=== PATIENT | male | born 1950 | race Caucasian/White ===

== ENCOUNTER 2018-06-11 10:14 | Emergency (ER) | payer MEDICARE, BC, SELFPAY ==
[2018-06-11 10:18] VITALS: BP 182/74; PULSE 55; RESP 18; TEMP 36.1; O2SAT 95; BMI 31.3
[2018-06-11 10:52] LABS: Bacteria Urine None Seen
--- NOTE | 2018-06-11 10:57 | DI.CT.S_ITS ---
PROCEDURE: CT KIDNEY URETER BLADDER (KUB) INDICATIONS: right flank pain TECHNIQUE: Noncontrast 5 mm thick sections acquired from the diaphragms to the symphysis. 5 mm thick coronal and sagittal reformats were then performed. For radiation dose reduction, the following was used: automated exposure control, adjustment of mA and/or kV according to patient size. COMPARISON: None. FINDINGS: Image quality: Excellent. Lung bases: Lung bases are clear. Heart size is normal. Urinary system: Both kidneys are atrophic bilaterally. Minimal hepatic calcifications are present. Superior left renal pole low attenuation focus is measured at 42 mm. There are 2 punctate calcifications within the superior left renal pole. There is a left inferior pole renal calcification measuring 4 mm, Hounsfield units for 47. There is a punctate inferior right renal pole calcification. There is a 3 mm calcification within the proximal right ureter with mild surrounding periureteral fluid. In addition, a 2 mm distal right ureteral calculus is present approximately 1.5 cm from the ureterovesicular junction. There is mild right hydronephrosis and hydroureter. Bladder wall thickness is normal; no calcified bladder stones. Prostate gland is enlarged with calcification. Other solid organs: Liver is normal in size. Gallbladder is unremarkable. Pancreas is normal in contours. Spleen is normal in size. There is a 27 mm focus of medial splenic low attenuation Hounsfield units 13. Left adrenal nodule is present measuring 20 mm, Hounsfield units measuring 9. Peritoneum and bowel: Unenhanced bowel loops demonstrate normal wall thickness and caliber. No free fluid or air. There is mild thickening of the distal esophagus with small hiatal hernia. Nodes and vessels: No retroperitoneal or mesenteric adenopathy by size criteria. Aorta and inferior vena cava are normal in caliber. Abdominal wall: No ventral hernias. Pelvis: No free pelvic fluid. Bilateral fat containing inguinal hernias are present. Bones: No suspicious bony lesions. No vertebral body compression fractures. IMPRESSION: 1. Mild right hydronephrosis and hydroureter with a proximal and distal ureteral calculi as above. Periureteral stranding is noted proximally likely secondary to a small degree of urinary extravasation. 2. Nonobstructing left renal calculi as well as renal cyst. 3. Benign-appearing left adrenal nodule as well as splenic cyst. Dictated by: Alessandra Hummel M.D. on 06/11/2018 at 11:30 Approved by: Alessandra Hummel M.D. on 06/11/2018 at 11:36
[2018-06-11 11:03] LABS: Mucus Urine 1+ (Negative); Renal Epithelial Cells Urine 0-1/HPF; Squamous Epithelial Cell Urine 0-1 /HPF; Transitional Epi Cells Urine 0-1/HPF (0-5/HPF); WBC Urine 0-1/HPF (0-5/HPF)
[2018-06-11 11:04] LABS: Culture Indicated Urine Cult Not Indicated; RBC Urine 30-100/HPF (0-5/HPF)
[2018-06-11 11:18] LABS: Add Manual Diff / Slide Review NO; Basophils Absolute Auto 100 /uL (0-100); Basophils Percent Auto 0.8 % (0-2); Eosinophils Absolute Auto 100 /uL (0-450); Eosinophils Percent Auto 0.6 % (2-4); Hemoglobin 16.5 g/dL (13.5-17.5); Lymphocytes Absolute Auto 1300 /uL (1100-4500); Lymphocytes Percent Auto 14.7 % (25-40); Mean Corpuscular HGB Conc 34.4 % (30-36); Mean Corpuscular Hemoglobin 29.7 PG (26-34); Mean Corpuscular Volume 86.2 fL (80-100); Monocytes Absolute Auto 700 /uL (0-900); Monocytes Percent Auto 8.3 % (3-14); Neutrophils Absolute Auto 6800 /uL (1500-7000); Neutrophils Percent Auto 75.6 % (50-75); Platelet Count 141 X10^3/uL (150-400); Red Blood Cell Count 5.56 X10^6/uL (4.5-5.9); Red Cell Distribution Width 14.2 % (11.6-14.8); White Blood Cell Count 8.9 X10^3/uL (4.5-11.0)
[2018-06-11] MEDS: SODIUM CHLORIDE 0.9% 1,000 ML 1000 ML IV (11:21)
[2018-06-11 11:29] LABS: Alanine Aminotransferase 41 IU/L (21-72); Albumin 4.3 g/dL (3.5-5.0); Albumin Globulin Ratio 1.5 (1.0-2.8); Alkaline Phosphatase 62 U/L (38-126); Aspartate Aminotransferase 28 IU/L (17-59); BUN Creatinine Ratio 21.1 (6-22); Bilirubin Total 1.4 mg/dL (0.2-1.3); Blood Urea Nitrogen 19 mg/dL (9-20); Calcium 9.3 mg/dL (8.4-10.2); Carbon Dioxide 21 mmol/L (22-32); Chloride 108 mmol/L (98-107); Estimated Glomerular Filt Rate > 60.0 mL/min (>60); Globulin 2.8 g/dL (1.7-4.1); Glucose 187 mg/dL (80-110); HEMOLYSIS < 15 (0-50); Lipase 217 U/L (23-300); Potassium 4.1 mmol/L (3.4-5.1); Sodium 141 mmol/L (137-145); Total Protein 7.1 g/dL (6.3-8.2)
--- NOTE | 2018-06-11 11:29 | ED_ITS ---
HPI - Abdominal Pain General Chief Complaint: Abdominal Pain Stated Complaint: Kidney Pain Time Seen by Provider: 06/11/18 10:38 Source: patient Mode of arrival: ambulatory Limitations: no limitations History of Present Illness HPI narrative: patient is 67-year-old male who presents with right-sided flank pain. He said it started while use eating breakfast and then we got up he felt a twinge. He now is occasionally having radiation around to his abdomen. No prior history of kidney stones no blood in his urine. He has thrown up 4 times due to severe pain. No fever or chills. MD complaint: flank pain Onset (ago): hour(s) Pain Consistency: intermittent Severity: moderate Quality: sharp Radiation: suprapubic Related Data Home Medications Medication Instructions Recorded Confirmed ATENOLOL (Tenormin) 25 mg PO EVERY DAY #0 03/03/08 Tamsulosin Hydrochloride (Flomax) 0.4 mg PO #0 03/03/08 Previous Rx's Medication Instructions Recorded hydrocodone-acetaminophen [[place]] 1 tab PO Q4-6H PRN #10 tab 06/11/18 ondansetron 4 mg PO Q6-8H PRN 4 Days #10 tab 06/11/18 tamsulosin [Flomax] 0.4 mg PO DAILY #7 cap 06/11/18 Allergies Allergy/AdvReac Type Severity Reaction Status Date / Time Penicillins Allergy Verified 06/11/18 11:20 Review of Systems Review of Systems ROS Unobtainable: All systems reviewed & are unremarkable except as noted in HPI and below Constitutional Denies chills, Denies fever(s), Denies lethargy and Denies weakness Cardiovascular Denies chest pain, Denies irregular heart rhythm, Denies lightheadedness, Denies palpitations, Denies dyspnea, Denies dyspnea on exertion and Denies orthopnea Respiratory Denies cough, Denies dyspnea, Denies dyspnea on exertion and Denies wheezing Gastrointestinal Gastrointestinal: Reports nausea and Reports vomiting Genitourinary Denies hematuria, Denies flank pain, Denies urinary incontinence and Denies urinary urgency Musculoskeletal Denies back pain, Denies muscle weakness, Denies numbness and Denies tingling Neurologic Denies numbness, Denies tingling and Denies weakness Endocrine Denies palpitations Allergic/Immunologic Denies wheezing [facility] Social History Smoking Status: Never smoker Social History Smoking Status: Never smoker Exam Initial Vital Signs Initial Vital Signs: Vital Signs Temperature 97.0 F L 06/11/18 10:18 Pulse Rate 55 L 06/11/18 10:18 Respiratory Rate 18 06/11/18 10:18 Blood Pressure 182/74 H 06/11/18 10:18 Pulse Oximetry 95 06/11/18 10:18 GENERAL: alert well-appearing male no acute distress HEENT: Head atraumatic,EOMI, pupils reactive, CARDIOVASCULAR: Regular rate and rhythm without murmurs, rubs or gallops. RESPIRATORY: Breath sounds equal bilaterally, no wheezes rales or rhonchi. ABDOMEN: Soft, nontender. Normoactive bowel sounds all 4 quadrants. No guarding or rebound. : Right CVA tenderness EXTREMITIES: Normal range of motion, no clubbing or edema. Neurovascularly intact NEUROLOGICAL: Alert and oriented x4.Normal gait and speech. SKIN: Warm, dry, no laceration, no petechiae, no rashes or lesions. Course Orders Ordered: ED Orders 06/11/18 10:41 Urine Microscopic Stat 06/11/18 10:57 CT kidney ureter bladder (KUB) Stat 06/11/18 11:10 Complete Blood Count AUTO DIFF Stat Comprehensive Metabolic Panel Stat Lipase Stat Discontinued Medications Sodium Chloride (Normal Saline 0.9%) 1,000 mls @ 1,000 mls/hr IV CONT GLENYS Last Infusion: 06/11/18 12:28 Dose: 0 mls/hr Admin: 06/11/18 11:21 Dose: 1,000 mls/hr Vital Signs - 8 hr 06/11/18 10:18 06/11/18 12:32 Temperature 97.0 F L Pulse Rate 55 L 45 L Respiratory Rate 18 15 Blood Pressure 182/74 H 149/59 H Pulse Oximetry 95 98 MDM - Abdominal Pain Lab Data Attestation: I reviewed the patient's lab results. Result diagrams: 06/11/18 11:10 06/11/18 11:10 Lab Results 06/11/18 06/11/18 06/11/18 Range/Units 10:41 11:10 11:10 WBC 8.9 (4.5-11.0) X10^3/uL RBC 5.56 (4.5-5.9) X10^6/uL Hgb 16.5 (13.5-17.5) g/dL Hct 48.0 (41-53) % MCV 86.2 (80-100) fL MCH 29.7 (26-34) PG MCHC 34.4 (30-36) % RDW 14.2 (11.6-14.8) % Plt Count 141 L (150-400) X10^3/uL Neut % (Auto) 75.6 H (50-75) % Lymph % (Auto) 14.7 L (25-40) % Gregory % (Auto) 8.3 (3-14) % Eos % (Auto) 0.6 L (2-4) % Baso % (Auto) 0.8 (0-2) % Neut # (Auto) 6800 (6005-0758) /uL Lymph # (Auto) 1300 (6225-9505) /uL Gregory # (Auto) 700 (0-900) /uL Eos # (Auto) 100 (0-450) /uL Baso # (Auto) 100 (0-100) /uL Sodium 141 (137-145) mmol/L Potassium 4.1 (3.4-5.1) mmol/L Chloride 108 H (98-107) mmol/L Carbon Dioxide 21 L (22-32) mmol/L BUN 19 (9-20) mg/dL Creatinine 0.90 (0.66-1.25) mg/dL Estimated GFR > 60.0 (>60) mL/min BUN/Creatinine Ratio 21.1 (6-22) Glucose 187 H (80-110) mg/dL Calcium 9.3 (8.4-10.2) mg/dL Total Bilirubin 1.4 H (0.2-1.3) mg/dL AST 28 (17-59) IU/L ALT 41 (21-72) IU/L Alkaline Phosphatase 62 (38-126) U/L Total Protein 7.1 (6.3-8.2) g/dL Albumin 4.3 (3.5-5.0) g/dL Globulin 2.8 (1.7-4.1) g/dL Albumin/Globulin Ratio 1.5 (1.0-2.8) Lipase 217 (23-300) U/L Urine RBC 30-100/hpf H (0-5/HPF) Urine WBC 0-1/hpf (0-5/HPF) Ur Squamous Epith Cells 0-1 /hpf Ur Transition Epith Cell 0-1/hpf (0-5/HPF) Ur Renal Epithelial Cell 0-1/hpf Urine Bacteria None seen (None) Urine Mucus 1+ H (Negative) Ur Culture Indicated? Cult not indicated Point of care testing: Urine Dip Bedside Urine Glucose Negative Bedside Urine Bilirubin - Negative Bedside Urine Ketone - Negative Urine Specific [place] 1.025 Bedside Urine Occult Blood +++ Bedside Urine pH 5.5 Bedside Urine Protein +/- 15 Bedside Urine Urobilinogen - Negative Bedside Urine Nitrite - Negative Bedside Urine Leukocytes - Negative Esterase Imaging Data CT scan - abdomen: Radiologist's impression: PROCEDURE: CT KIDNEY URETER BLADDER (KUB) INDICATIONS: right flank pain TECHNIQUE: Noncontrast 5 mm thick sections acquired from the diaphragms to the symphysis. 5 mm thick coronal and sagittal reformats were then performed. For radiation dose reduction, the following was used: automated exposure control, adjustment of mA and/or kV according to patient size. COMPARISON: None. FINDINGS: Image quality: Excellent. Lung bases: Lung bases are clear. Heart size is normal. Urinary system: Both kidneys are atrophic bilaterally. Minimal hepatic calcifications are present. Superior left renal pole low attenuation focus is measured at 42 mm. There are 2 punctate calcifications within the superior left renal pole. There is a l eft inferior pole renal calcification measuring 4 mm, Hounsfield units for 47. There is a punctate inferior right renal pole calcification. There is a 3 mm calcification within the proximal right ureter with mild surrounding periureteral fluid. In addition, a 2 mm distal right ureteral calculus is present approximately 1.5 cm from the ureterovesicular junction. There is mild right hydronephrosis and hydroureter. Bladder wall thickness is normal; no calcified bladder stones. Prostate gland is enlarged with calcification. Other solid organs: Liver is normal in size. Gallbladder is unremarkable. Pancreas is normal in contours. Spleen is normal in size. There is a 27 mm focus of medial splenic low attenuation Hounsfield units 13. Left adrenal nodule is present measuring 20 mm, Hounsfield units measuring 9. Peritoneum and bowel: Unenhanced bowel loops demonstrate normal wall thickness and caliber. No free fluid or air. There is mild thickening of the distal esophagus with small hiatal hernia. Nodes and vessels: No retroperitoneal or mesenteric adenopathy by size criteria. Aorta and inferior vena cava are normal in caliber. Abdominal wall: No ventral hernias. Pelvis: No free pelvic fluid. Bilateral fat containing inguinal hernias are present. Bones: No suspicious bony lesions. No vertebral body compression fractures. IMPRESSION: 1. Mild right hydronephrosis and hydroureter with a proximal and distal ureteral calculi as above. Periureteral stranding is noted proximally likely secondary to a small degree of urinary extravasation. 2. Nonobstructing left renal calculi as well as renal cyst. 3. Benign-appearing left adrenal nodule as well as splenic cyst. Dictated by: Alessandra Hummel M.D. on 06/11/2018 at 11:30 MDM Narrative Medical decision making narrative: the patient's pain is controlled while in the ED. Discussed with him he should see Urology in regards to his multitude of kidney stones. He has a PCP in in a different town. Discharge Plan Departure Patient Disposition: Home Clinical Impression: Calculus of kidney Discharge Date/Time: 06/11/18 12:34 Interventions: ED Discharge Assessment Last Done: 06/11/18 12:32 Instructions: Kidney Stones -- Adult Activity Restrictions/Additional Instructions: *Increase fluid intake *Call urology office tomorrow, to schedule follow-up appointment. Strain urine, try to catch stone -If you should have fever, or pain is uncontrolled with medication at home or any other concerning symptoms return to ER for further evaluation MEDICATIONS Take Motrin 600 mg every 6-8 hours as needed for pain Take [place] every 6 hours if needed for severe pain Take Zofran every 4-6 hours if needed for nausea take Flomax 0.4 mg once daily to help with passage of kidney stone CONTROLLED SUBSTANCE DISCHARGE (Narcotoic/benzodiazepine) 1. You have been prescribed narcotic medications, it does have acetaminophen/Tylenol/paracetamol in it so do not take extra Tylenol or Tylenol containing products 2. Please understand that we cannot provide further refills of narcotics, benzodiazepines or controlled substances through the ED and her pain management will need to be through your provider. 3. While on these medications you cannot drive or operate heavy machinery. 4. You cannot sign legal documents or perform any duties such as this. 5. As long as you're taking opiate pain medications he should also be taking a stool softener such as Colace, Dulcolax, MiraLAX or prune juice, to help avoid constipation. Prescriptions: New hydrocodone-acetaminophen [[place]] 5-325 mg tablet 1 tab PO Q4-6H PRN (Reason: pain) Qty: 10 RF: 0 tamsulosin [Flomax] 0.4 mg capsule 0.4 mg PO DAILY Qty: 7 RF: 0 ondansetron 4 mg tablet,disintegrating 4 mg PO Q6-8H PRN (Reason: nausea and vomiting) 4 Days Qty: 10 RF: 0 No Action ATENOLOL (Tenormin) 25 mg PO EVERY DAY Qty: 0 RF: 0 Tamsulosin Hydrochloride (Flomax) 0.4 mg PO Qty: 0 RF: 0 Referrals: Naty Kinney MD [Primary Care Provider] -
[2018-06-11 12:32] VITALS: BP 149/59; PULSE 45; RESP 15; O2SAT 98
== END 2018-06-11 12:34 | disposition home or self-care (01) ==
PROVIDERS: Emergency Provider Emergency Medicine; PCP Family Medicine
DX: N20.0 Calculus of kidney (principal)
CPT/HCPCS: 36591; 74176; 80053; 81003; 81015; 83690; 85025; 96360; 99283; 99284

== ENCOUNTER 2023-01-26 22:22 | Inpatient (IN) | payer MEDICARE, OTHER, SELFPAY ==
[2023-01-26] VITALS (7 sets, daily range): BP systolic 92–112; BP diastolic 54–65; PULSE 56–60; RESP 18–21; TEMP 36.5; O2SAT 91–95; BMI 29.7
[2023-01-26 22:56] LABS: Alanine Aminotransferase 18 IU/L (<50); Albumin 3.9 g/dL (3.5-5.0); Albumin Globulin Ratio 1.1 (1.0-2.8); Alkaline Phosphatase 65 U/L (38-126); Aspartate Aminotransferase 20 IU/L (17-59); BUN Creatinine Ratio 21.5 (6-22); Bilirubin Total 1.8 mg/dL (0.2-1.3); Blood Urea Nitrogen 67 mg/dL (9-20); Calcium 9.4 mg/dL (8.4-10.2); Carbon Dioxide 17 mmol/L (22-32); Chloride 99 mmol/L (98-107); Estimated Glomerular Filt Rate 20 mL/min (>60); Globulin 3.4 g/dL (1.7-4.1); Glucose 184 mg/dL (80-110); HEMOLYSIS 16 (0-50); Lipase 1045 U/L (23-300); Potassium 3.8 mmol/L (3.4-5.1); Sodium 132 mmol/L (137-145); Total Protein 7.3 g/dL (6.3-8.2)
[2023-01-26 22:58] LABS: Add Manual Diff / Slide Review NO; Basophils Absolute Auto 100 /uL (0-100); Basophils Percent Auto 0.6 % (0-2); Eosinophils Absolute Auto 100 /uL (0-450); Eosinophils Percent Auto 0.3 % (2-4); Hematocrit 41.7 % (41-53); Hemoglobin 14.3 g/dL (13.5-17.5); Lymphocytes Absolute Auto 2300 /uL (1100-4500); Lymphocytes Percent Auto 13.2 % (25-40); Mean Corpuscular HGB Conc 34.3 % (30-36); Mean Corpuscular Hemoglobin 29.4 PG (26-34); Mean Corpuscular Volume 85.6 fL (80-100); Monocytes Absolute Auto 2100 /uL (0-900); Monocytes Percent Auto 12.2 % (3-14); Neutrophils Absolute Auto 12800 /uL (1500-7000); Neutrophils Percent Auto 73.7 % (50-75); Platelet Count 201 X10^3/uL (150-400); Red Blood Cell Count 4.88 X10^6/uL (4.5-5.9); Red Cell Distribution Width 14.7 % (11.6-14.8); White Blood Cell Count 17.3 X10^3/uL (4.5-11.0)
[2023-01-26 23:14] LABS: Lactate (Lactic Acid) 1.9 mmol/L (0.7-2.1)
[2023-01-26 23:15] LABS: Creatine Kinase 62 U/L (55-170); Magnesium 2.1 mg/dL (1.6-2.3)
[2023-01-26 23:27] LABS: Troponin I 0.031 ng/mL (0.01-0.034)
--- NOTE | 2023-01-26 23:27 | DI.CT.S_ITS ---
PROCEDURE: CT KIDNEY URETER BLADDER (KUB) INDICATIONS: elevated creatnine, hypotension, left kidney stone, low o2 TECHNIQUE: Axial sections were acquired from the lung bases to the pubic symphysis. Coronal and sagittal reformats were performed. For radiation dose reduction, the following was used: automated exposure control, adjustment of mA and/or kV according to patient size. COMPARISON: [facility], CT, CT KIDNEY URETER BLADDER (KUB), 06/11/2018, 11:07. FINDINGS: Image quality: Excellent. Lung bases: Unremarkable. Heart: Heart size is enlarged, no pericardial effusion. URINARY: Right Kidney: Right kidney is slightly atrophic. No nephrolithiasis or hydronephrosis. Right Ureter: No hydroureter. Left Kidney: Left Kidney is enlarged. Moderate left-sided hydronephrosis and left perinephric fat stranding is seen. Nonobstructing punctate 1-2 mm left renal calculi are also seen. There is suggestion of a simple appearing left renal cyst measures 5 x 5 cm in size. Left Ureter: Left proximal hydroureter and periureteral fat stranding is seen. 2 stones are noted within proximal left ureter measures up to 6 mm in size and 110 Hounsfield unit in density series 2, image 52. More distal portion of left ureter is normal in size. No additional ureteral stones. Bladder: enlarged prostate gland with mass effect on floor of urinary bladder is seen. Mild diffuse bladder wall thickening, no discrete bladder wall mass. No calcified bladder stones. ABDOMEN: Liver: Unremarkable. Gallbladder: gallbladder is within normal limits. Biliary ducts: Unremarkable. Pancreas: Unremarkable. Spleen: Unremarkable. Adrenal Glands: 2.4 x 2.7 cm hypodense nodule in left adrenal gland is seen measures 11.5 Hounsfield unit in density likely represent benign adrenal adenoma.. Stomach and Bowel: Stomach, small bowel loops, and colon are unremarkable. Peritoneum: No abnormal intraperitoneal fluid. No free air. Ventral Wall: No hernia. Abdominal Nodes: No enlarged retroperitoneal or mesenteric lymph nodes. Vessels: Aorta and inferior vena cava are normal in size. PELVIS: Pelvic Organs: Unremarkable. Pelvic Nodes: Unremarkable. Miscellaneous: No inguinal hernias are seen. Bones: No suspicious bony lesions. No acute vertebral body compression fracture. IMPRESSION: 1. Up to 6 mm left proximal ureteral stones with moderate left-sided hydronephrosis and left perinephric fat stranding. 2. Nonobstructing left renal calculi. Left renal cysts as above. No right-sided hydronephrosis or hydroureter. 3. No bladder stones. Enlarged prostate gland with mass effect on floor of urinary bladder. Mild diffuse bladder wall thickening. No gross bladder wall mass. 4. Stable left adrenal adenoma. 5. No bowel obstruction. No abscess collection. No free fluid or free air. Dictated by: Alfonso Tom M.D. on 01/26/2023 at 23:53 Approved by: Alfonso Tom M.D. on 01/27/2023 at 0:00
--- NOTE | 2023-01-26 23:27 | DI.RAD.S_ITS ---
PROCEDURE: XR CHEST 1V INDICATIONS: elevated creatnine, hypotension, left kidney stone, low o2 TECHNIQUE: One view of the chest was acquired. COMPARISON: None. FINDINGS: Surgical changes and devices: None. Lungs and pleura: Lungs are clear. No pleural effusions or pneumothorax. Mediastinum: Mediastinal contours appear normal. Heart size is normal. Bones and chest wall: No suspicious bony lesions. Overlying soft tissues appear unremarkable. IMPRESSION: No acute cardiopulmonary pathology. Dictated by: Alfonso Tom M.D. on 01/27/2023 at 0:01 Approved by: Alfonso Tom M.D. on 01/27/2023 at 0:02
[2023-01-26 23:32] LABS: Procalcitonin 0.48 ng/mL (<0.5)
--- NOTE | 2023-01-26 23:32 | ED_ITS ---
HPI - Abdominal Pain General Chief Complaint: Abdominal Pain Stated Complaint: constipation/kidney stone Time Seen by Provider: 01/26/23 22:51 Source: patient Mode of arrival: Family Vehicle Limitations: no limitations History of Present Illness HPI narrative: 72-year-old male with history of heart block, cardiac arrhythmia on Eliquis, diabetes type 2, hypertension, dyslipidemia, BPH with recent kidney stone diagnosed last Tuesday. Patient presents this evening with intermittent flank pain is currently controlled. He states when pain is quite bad he will have vomiting. He denies any fevers or chills. He notes tonight he had not been able have a bowel movement for several days. He had a large bowel movement just after arrival in his lower abdominal pelvic pain has significantly improved. Patient states he has been urinating frequently he does not think there has been small amounts or decreased output, he states it was darker and bloody at the beginning of the week on Tuesday and Tuesday when he was diagnosed with a kidney stone but has not been persistent. He denies any lightheadedness or passing out. He denies any chest pain or pressure. Denies any shortness of breath. He denies any nausea or vomiting currently but has had some intermittent. He states he has been able to eat and drink in between. Patient states no new swelling of extremities. He notes he is had prior ankle and shoulder surgery, prior appendectomy. He is not had any interventions for his heart he has been recommended to have a pacemaker remotely in the past but has not ever had 1 he states his heart rate tends to run in the 40-50 range in her regularly. Denies tobacco, 1 beer monthly, no illicit. He is seen Cardiology through the [facility] but does not follow regularly. He sees a urologist Dr. Douglas, Dr. Reilly for his PCP. Most of his care is [facility] and [facility]. Patient is accompanied by his . Related Data Home Medications Medication Instructions Recorded Confirmed ATENOLOL (Tenormin) 25 mg PO EVERY DAY ##0 03/03/08 Tamsulosin Hydrochloride (Flomax) 0.4 mg PO ##0 03/03/08 Previous Rx's Medication Instructions Recorded hydrocodone 5 mg-acetaminophen 325 1 tab PO Q4-6H PRN pain #10 tabs 06/11/ mg tablet ([place]) tamsulosin 0.4 mg capsule (Flomax) 0.4 mg PO DAILY #7 caps 06/11/18 Allergies Allergy/AdvReac Type Severity Reaction Status Date / Time Penicillins Allergy Verified 06/11/18 11:20 Review of Systems Review of Systems ROS Unobtainable: All systems reviewed & are unremarkable except as noted in HPI and below Patient History Medical History (Updated 01/27/23 @ 03:34 by Edwin Eckert MD) BPH (benign prostatic hyperplasia) Diabetes A-fib CKD (chronic kidney disease) stage 3, GFR 30-59 ml/min Social History Smoking Status: Never smoker Smoking Status: Never smoker alcohol intake frequency: a few times a month Substance Use Type: does not use Exam Narrative Exam Narrative: GEN: well nourished, well appearing male, alert and oriented x 3, patient appears to be in mild distress. HEENT: Atraumatic, pupils are equal round reactive to light, extraocular movements are intact, nares are clear, there is no conjunctival pallor. Throat is clear without any exudates, erythema, tonsillar enlargement or uvular deviation, patient has dry mucous membranes. HEART: Bradycardic and irregular rate and rhythm without murmur, clicks, rubs. Pulses are equal in upper and lower extremities LUNGS:Lungs clear to auscultation, no wheezes, rales, crackles, chest moves symmetrically, no crackles, wheezes or rales. No tachypnea. Speaks in full sentences. No edema bilateral lower extremities. ABD:bowel sounds normal, soft, mildly distended. Non-tender, no guarding, rebound, rigidity, no masses noted, no hepatosplenomegaly :No CVA tenderness MSCL: Non-tender, no muscle atrophy, muscles strength 5/5 upper and lower extremities, full range of motion, normal gait NEURO:CN 2-12 intact, sensation normal. SKIN: No rash, erythema or other skin changes noted. Initial Vital Signs Initial Vital Signs: Vital Signs Temperature 97.7 F 01/26/23 22:33 Pulse Rate 59 L 01/26/23 22:33 Respiratory Rate 18 01/26/23 22:33 Blood Pressure 112/65 01/26/23 22:33 Pulse Oximetry 94 01/26/23 22:33 Oxygen Delivery Method Room Air 01/26/23 22:33 Course Orders Ordered: ED Orders 01/26/23 22:39 Complete Blood Count AUTO DIFF Stat Comprehensive Metabolic Panel Stat Lactate (Lactic Acid) Stat Lipase Stat MAG [Magnesium] Stat Procalcitonin Stat Troponin & CK Cardiac Panel Stat 01/26/23 22:53 EKG-12 Lead Stat 01/26/23 23:00 Blood Culture Stat 01/26/23 23:06 BNP [NT-proBNP (BNP-Adult 18+)] Stat 01/26/23 23:27 CT kidney ureter bladder (KUB) Stat Chest [XR chest 1V] Stat ABG [Arterial Blood Gas] Stat 01/27/23 00:15 Urinalysis and Microscopic Stat Acetaminophen (Acetaminophen 325 Mg Tablet) 650 mg PO Q6H PRN PRN Reason: Fever/Mild Pain (1-3) Bisacodyl (Bisacodyl 10 Mg Supp) 10 mg [place] DAILY PRN PRN Reason: Constipation Hydromorphone HCl (Hydromorphone 0.5 Mg Inj) 0.5 mg IV Q2H PRN PRN Reason: Pain, Severe (7-10) Sodium Chloride (Normal Saline 0.9%) 1,000 mls @ 100 mls/hr IV CONT GLENYS Naloxone HCl (Naloxone 0.4 Mg/Ml Vial) 0.2 mg IV Q2MIN PRN PRN Reason: Opiate Reversal Ondansetron HCl (Ondansetron 4 Mg/2 Ml Inj) 4 mg IV Q8HR PRN PRN Reason: Nausea And Vomiting Ondansetron HCl (Ondansetron 4 Mg Odt) 4 mg PO Q8HR PRN PRN Reason: Nausea And Vomiting Oxycodone HCl (Oxycodone Ir 5 Mg Tablet) 5 mg PO Q3H PRN PRN Reason: Pain, Moderate (4-6) Oxycodone HCl (Oxycodone Ir 10 Mg Tablet) 10 mg PO Q3H PRN PRN Reason: Pain, Severe (7-10) Tamsulosin HCl (Tamsulosin 0.4 Mg Capsule) 0.4 mg PO BEDTIME GLENYS Discontinued Medications Sodium Chloride (Normal Saline 0.9%) 1,000 mls @ 1,000 mls/hr IV BOLUS ONE Stop: 01/26/23 23:50 Last Admin: 01/26/23 23:51 Dose: Not Given Documented By: DEEPAK Sodium Chloride (Normal Saline 0.9%) 2,585.49 mls @ 861.83 mls/hr 30 ml/kg infuse over 3 hr (2585.49 ml) IV NOW ONE Stop: 01/27/23 02:33 Last Infusion: 01/27/23 03:03 Dose: Infused Documented By: Admin: 01/26/23 23:50 Dose: 861.83 mls/hr Documented By: DEEPAK Levofloxacin (Levaquin) 750 mg in 150 mls @ 100 mls/hr IV NOW ONE Stop: 01/27/23 01:38 Last Infusion: 01/27/23 02:16 Dose: Infused Documented By: Admin: 01/27/23 00:43 Dose: 100 mls/hr Documented By: DEEPAK Sodium Chloride (Normal Saline 0.45%) 1,000 mls @ 100 mls/hr IV CONT GLENYS Ketorolac Tromethamine (Ketorolac 30 Mg/Ml Vial) 15 mg IV NOW ONE Stop: 01/27/23 01:19 Last Admin: 01/27/23 01:26 Dose: Not Given Documented By: DEEPAK Lidocaine HCl (Lidocaine 2% (Glydo) 6 Ml Gel) 6 ml TOP NOW ONE Stop: 01/27/23 00:09 Last Admin: 01/27/23 00:11 Dose: 6 ml Documented By: YEHUDA Ondansetron HCl (Ondansetron 4 Mg Odt) 4 mg PO NOW PRN PRN Reason: Nausea And Vomiting Ondansetron HCl (Ondansetron 4 Mg/2 Ml Inj) 4 mg IV NOW PRN PRN Reason: Nausea And Vomiting Vital Signs Vital signs: Vital Signs - 8 hr 01/26/23 22:33 01/26/23 22:34 01/26/23 22:44 Temperature 97.7 F Pulse Rate 59 L 56 L Respiratory Rate 18 21 Blood Pressure 112/65 Pulse Oximetry 94 93 91 Oxygen Delivery Method Room Air Room Air Oxygen Flow Rate 01/26/23 22:44 01/26/23 23:00 01/26/23 23:00 Temperature Pulse Rate 60 Respiratory Rate 21 Blood Pressure 99/54 L 92/55 L Pulse Oximetry 93 Oxygen Delivery Method Room Air Oxygen Flow Rate 01/26/23 23:15 01/26/23 23:20 01/26/23 23:30 Temperature Pulse Rate Respiratory Rate Blood Pressure 99/55 L Pulse Oximetry 92 92 Oxygen Delivery Method Nasal Cannula Nasal Cannula Oxygen Flow Rate 3 4 01/26/23 23:30 01/27/23 00:00 01/27/23 00:11 Temperature Pulse Rate 58 L 43 L Respiratory Rate 20 22 Blood Pressure 110/56 L Pulse Oximetry 95 93 Oxygen Delivery Method Nasal Cannula Room Air Oxygen Flow Rate 4 01/27/23 00:11 01/27/23 00:30 01/27/23 00:30 Temperature Pulse Rate 47 L 41 L Respiratory Rate 21 16 Blood Pressure 111/58 L Pulse Oximetry 93 97 Oxygen Delivery Method Room Air Room Air Oxygen Flow Rate 01/27/23 01:00 01/27/23 01:00 01/27/23 01:30 Temperature Pulse Rate 42 L Respiratory Rate 17 Blood Pressure 116/54 L 109/60 Pulse Oximetry 92 Oxygen Delivery Method Room Air Oxygen Flow Rate 01/27/23 01:30 01/27/23 02:00 01/27/23 02:00 Temperature Pulse Rate 45 L 43 L Respiratory Rate 19 17 Blood Pressure 125/63 Pulse Oximetry 96 95 Oxygen Delivery Method Room Air Room Air Oxygen Flow Rate MDM - Abdominal Pain Lab Data 01/26/23 22:39 01/26/23 22:39 Labs: Lab Results 01/26/23 01/26/23 01/27/23 Range/Units 22:39 23:06 00:15 WBC 17.3 H (4.5-11.0) X10^3/uL RBC 4.88 (4.5-5.9) X10^6/uL Hgb 14.3 (13.5-17.5) g/dL Hct 41.7 (41-53) % MCV 85.6 (80-100) fL MCH 29.4 (26-34) PG MCHC 34.3 (30-36) % RDW 14.7 (11.6-14.8) % Plt Count 201 (150-400) X10^3/uL Neut % (Auto) 73.7 (50-75) % Lymph % (Auto) 13.2 L (25-40) % [place] % (Auto) 12.2 (3-14) % Eos % (Auto) 0.3 L (2-4) % Baso % (Auto) 0.6 (0-2) % Neut # (Auto) 41677 H (7162-3659) /uL Lymph # (Auto) 2300 (9562-8239) /uL [place] # (Auto) 2100 H (0-900) /uL Eos # (Auto) 100 (0-450) /uL Baso # (Auto) 100 (0-100) /uL Sodium 132 L (137-145) mmol/L Potassium 3.8 (3.4-5.1) mmol/L Chloride 99 (98-107) mmol/L Carbon Dioxide 17 L (22-32) mmol/L BUN 67 H (9-20) mg/dL Creatinine 3.12 H (0.66-1.25) mg/dL Estimated GFR 20 L (>60) mL/min BUN/Creatinine Ratio 21.5 (6-22) Glucose 184 H (80-110) mg/dL Lactate 1.9 (0.7-2.1) mmol/L Calcium 9.4 (8.4-10.2) mg/dL Magnesium 2.1 (1.6-2.3) mg/dL Total Bilirubin 1.8 H (0.2-1.3) mg/dL AST 20 (17-59) IU/L ALT 18 (<50) IU/L Alkaline Phosphatase 65 (38-126) U/L Total Creatine Kinase 62 (55-170) U/L Troponin I 0.031 (0.01-0.034) ng/mL NT-Pro-B Natriuret Pep 530 H (<125) pg/mL Total Protein 7.3 (6.3-8.2) g/dL Albumin 3.9 (3.5-5.0) g/dL Globulin 3.4 (1.7-4.1) g/dL Albumin/Globulin Ratio 1.1 (1.0-2.8) Lipase 1045 H (23-300) U/L Procalcitonin 0.48 (<0.5) ng/mL Urine Color Yellow Urine Appearance Clear Urine pH 5.0 (4.5-8.0) Ur Specific [place] >=1.030 H (1.000-1.035) Urine Protein Negative (Negative) Urine Glucose (UA) Negative (Negative) g/dL Urine Ketones Trace H (NEGATIVE) Urine Occult Blood 3+ H (Negative) Urine Nitrate Negative (Negative) Urine Bilirubin Negative (NEGATIVE) Urine Urobilinogen 1.0 (0.2) E.U./dL Ur Leukocyte Esterase Negative (NEGATIVE) Urine RBC 5-10/hpf H (0-5/HPF) Urine WBC 0-1/hpf (0-5/HPF) Ur Squamous Epith Cells 1-5 /hpf (0-5/HPF) Urine Bacteria None seen (None) Ur Culture Indicated? Cult not indicated Point of care testing: Point of Care Testing Glucose POC 209 Imaging Data Chest x-ray: Radiologist's Impression: Close Chest X-Ray (Signed) Alfonso Tom - 01/26/23 Abdomen/Pelvis CT (Signed) Alfonso Tom - 01/26/23 Abdomen/Pelvis CT (Signed) Alessandra Hummel - 06/11/18 Launch?Image [address] [address] XRay Report Signed Patient: Naty Martel MR#: [id number] : 1950 Acct:[id number] Age/Sex: 72 / M Date of Service: 01/26/23 Loc: ED Accession Number: [id number] Procedure: XR chest 1V Ordering Provider: Jeny Salguero D.O. PROCEDURE: XR CHEST 1V INDICATIONS: elevated creatnine, hypotension, left kidney stone, low o2 TECHNIQUE: One view of the chest was acquired. COMPARISON: None. FINDINGS: Surgical changes and devices: None. Lungs and pleura: Lungs are clear. No pleural effusions or pneumothorax. Mediastinum: Mediastinal contours appear normal. Heart size is normal. Bones and chest wall: No suspicious bony lesions. Overlying soft tissues appear unremarkable. IMPRESSION: No acute cardiopulmonary pathology. Dictated by: Alfonso Tom M.D. on 01/27/2023 at 0:01 Approved by: Alfonso Tom M.D. on 01/27/2023 at 0:02 CT scan - abdomen/pelvis: Radiologist's Impression: [address] [address] [address] Scan Report Signed Patient: Naty Martel MR#: [id number] : 1950 Acct:[id number] Age/Sex: 72 / M Date of Service: 01/26/23 Loc: ED Accession Number: [id number] Procedure: CT kidney ureter bladder (KUB) Ordering Provider: Jeny Salguero D.O. PROCEDURE: CT KIDNEY URETER BLADDER (KUB) INDICATIONS: elevated creatnine, hypotension, left kidney stone, low o2 TECHNIQUE: Axial sections were acquired from the lung bases to the pubic symphysis. Coronal and sagittal reformats were performed. For radiation dose reduction, the following was used: automated exposure control, adjustment of mA and/or kV according to patient size. COMPARISON: [facility], CT, CT KIDNEY URETER BLADDER (KUB), 06/11/2018, 11:07. FINDINGS: Image quality: Excellent. Lung bases: Unremarkable. Heart: Heart size is enlarged, no pericardial effusion. URINARY: Right Kidney: Right kidney is slightly atrophic. No nephrolithiasis or hydronephrosis. Right Ureter: No hydroureter. Left Kidney: Left Kidney is enlarged. Moderate left-sided hydronephrosis and left perinephric fat stranding is seen. Nonobstructing punctate 1-2 mm left renal calculi are also seen. There is suggestion of a simple appearing left renal cyst measures 5 x 5 cm in size. Left Ureter: Left proximal hydroureter and periureteral fat stranding is seen. 2 stones are noted within proximal left ureter measures up to 6 mm in size and 110 Hounsfield unit in density series 2, image 52. More distal portion of left ureter is normal in size. No additional ureteral stones. Bladder: enlarged prostate gland with mass effect on floor of urinary bladder is seen. Mild diffuse bladder wall thickening, no discrete bladder wall mass. No calcified bladder stones. ABDOMEN: Liver: Unremarkable. Gallbladder: gallbladder is within normal limits. Biliary ducts: Unremarkable. Pancreas: Unremarkable. Spleen: Unremarkable. Adrenal Glands: 2.4 x 2.7 cm hypodense nodule in left adrenal gland is seen measures 11.5 Hounsfield unit in density likely represent benign adrenal adenoma.. Stomach and Bowel: Stomach, small bowel loops, and colon are unremarkable. Peritoneum: No abnormal intraperitoneal fluid. No free air. Ventral Wall: No hernia. Abdominal Nodes: No enlarged retroperitoneal or mesenteric lymph nodes. Vessels: Aorta and inferior vena cava are normal in size. PELVIS: Pelvic Organs: Unremarkable. Pelvic Nodes: Unremarkable. Miscellaneous: No inguinal hernias are seen. Bones: No suspicious bony lesions. No acute vertebral body compression fracture. IMPRESSION: 1. Up to 6 mm left proximal ureteral stones with moderate left-sided hydronephrosis and left perinephric fat stranding. 2. Nonobstructing left renal calculi. Left renal cysts as above. No right- sided hydronephrosis or hydroureter. 3. No bladder stones. Enlarged prostate gland with mass effect on floor of urinary bladder. Mild diffuse bladder wall thickening. No gross bladder wall mass. 4. Stable left adrenal adenoma. 5. No bowel obstruction. No abscess collection. No free fluid or free air. Dictated by: Alfonso Tom M.D. on 01/26/2023 at 23:53 Approved by: Alfonso Tom M.D. on 01/27/2023 at 0:00 ECG Data Attestation: I personally reviewed and interpreted this ECG as follows: Prior ECG tracings: not available for review Interpretation: Heart block, rate of 65 QRS of 110 QTC 432 left axis deviation LVH. Multiple PVCs. Biphasic P wave. Patient does not have priors for comparison. MDM Narrative Medical decision making narrative: 72-year-old male comes in with complaint of abdominal pain and difficulty with bowel movements with recent left renal stone flank pain has been intermittent he has had some vomiting intermittently. He would a large bowel movement here after arrival and felt significantly better in his abdomen. Heart rate is slow patient notes he runs 40s to 50s normally has some form of heart block but he is unsure of exactly what it is called. He is on Eliquis daily he states 3rd been discussion about pacemaker in the past but he would always elected not to have 1 placed. He has been intermittently hypotensive possible low O2 although +is questionable patient does not appear to have any respiratory distress and after CT imaging patient is able to lay fully flat with 92% on room air and not requiring any oxygen for the last several hours. Patient has a white count of 17, leftward shift, normal hemoglobin with appropriate platelets. Potassium is appropriate at 3.8 creatinine 3.12 with a BUN of 67 and a sodium of 132 glucose is 184, total bili is 1.8 was 1.04413 patient's prior creatinine was 0.9 in 2019 he does not recall any history of renal dysfunction. Troponin was negative at 0.031, lipase was elevated at 1045. Protocols negative lactate appropriate. Plan for ABG on room air to evaluate oxygen saturation, chest x-ray, CT KUB to evaluate for obstructing renal stone, will repeat troponin, IV fluids, Cho catheter patient is persistently hypotensive may start pressors. Patient does have potential for obstructing stone with sepsis although afebrile. Patient also may have multiple medical issues causing his symptoms. Additional workup shows: Slight atrophy of right kidney, left kidney is enlarged with moderate left hydro and perinephric stranding nonobstructing punctate 1-2 mm left calculi but there is cysts 5 x 5 cm in size. Patient's family was able to provide a report from CT in the past week which shows this cyst at the same size at outside facility. And there is a 6 mm stone at the proximal left ureter more distal portion of the left ureter is normal in size with no additional stones enlarged prostate with mass effect on the bladder floor mild diffuse bladder wall thickening. Patient has a adrenal gland nodule also noted on old outpatient CT with no other acute changes, bowel obstruction appreciated. Patient's chest x-ray is also negative. Patient was also able to give me some labs on 12/09 he would a creatinine of 1.45. Sodium is slightly low but otherwise appropriate CO2 is 17 BUN 67 with a creatinine of 3.12 which is new compared to November. BNP is 530 but troponin is 0.031 patient does not have any chest pain or shortness of breath lipase slightly elevated, procalcitonin is negative with negative lactate at 1.9. Patient did receive a 30 cc/kilos bolus, patient has had good improvement in blood pressure after 1 L of fluids in his more than 110 range. Cho catheter was placed patient has had 50 mL out over her 30 minutes. Urinalysis shows trace ketones 3+ blood specific gravity 10 30, no nitrates, no leuks, 5-10 RBCs sort of 1 wbc's 1-5 squamous epithelials. Patient's urine was cultured but does not look highly suspicious for infection at this time. Suspect combination of dehydration along with renal stone causing hydro acute kidney injury. Patient has responded well to fluids he is having urine output, light yellow. Blood pressures been consistently in the 110s. Urology consultation, Dr. Tanner: We will see patient later today with possibility for lithotripsy. Discussed right kidney is slightly atrophic so there maybe some intrinsic renal disease, but dehydration complicating and elevating his creatinine along with his kidney stone. With patient's multiple medical issues asked for admission to medicine. Did review that patient CT as an outpatient showed a 6 mm stone was still proximal left ureter had mild hydro moderate today, that there was renal cyst present but had not changed inside and on patient's outpatient CT from a week ago. Patient does have a white count urine does not appear infected but we did cover with IV antibiotic. Receiving fluids and does seem to have good urine output. Spoke with Dr. Eckert tele hospitalist; accept for admission did review patient had creatinine at outside facility that was 1.45 on december 09 2022. Discussed patient is to be seen by Urology for possible lithotripsy today, continue with hydration was covered with a dose of IV antibiotic was hypotensive but responded well to antibiotics. Not requiring any pressors. Patient has had 150 mL of urine out over 85 minutes. Critical Care Time Critical Care Time Attestation: The high probability of a clinically significant, sudden or life threatening deterioration of the [cardiac, pulm] system(s) required my full and direct attention, intervention and personal management. The aggregate critical care time was [] minutes. This time is in addition to time spent performing reported procedures but includes the following: [x] Data Review and interpretation [x] Patient assessment and monitoring of vital signs [x] Documentation [x] Medication orders and management Discharge Plan Departure Patient Disposition: Admitted As Inpatient Clinical Impression: Calculus of left ureter, Acute kidney injury Admit Date/Time: 01/27/23 02:30 Admit Provider: Edwin Eckert
[2023-01-26 23:48] LABS: NT-proBNP (BNP-Adult 18+) 530 pg/mL (<125)
[2023-01-26] MEDS: SODIUM CHLORIDE 0.9% 2,585.49 ML 861.83 ML IV (23:50)
[2023-01-27] VITALS (61 sets, daily range): BP systolic 106–131; BP diastolic 54–89; PULSE 38–94; RESP 14–27; TEMP 36.6–36.9; O2SAT 91–98; BMI 31.9
[2023-01-27] MEDS: LIDOCAINE 2% (GLYDO) 6 ML GEL TOP (00:11)
[2023-01-27] MEDS: levoFLOXacin 750 MG/150 ML PIGGYBACK 100 MG IV (00:43)
[2023-01-27 00:47] LABS: Appearance Urine UA CLEAR; Bilirubin Urine UA NEGATIVE (NEGATIVE); Color Urine UA YELLOW; Glucose Urine UA NEGATIVE (Negative); Ketones Urine UA TRACE (NEGATIVE); Leukocyte Esterase Urine UA NEGATIVE (NEGATIVE); Nitrite Urine UA NEGATIVE (Negative); Occult Blood Urine UA 3+ (Negative); Protein Urine UA NEGATIVE (Negative); Specific Gravity Urine UA >=1.030 (1.000-1.035)
[2023-01-27 01:11] LABS: Bacteria Urine None Seen; Culture Indicated Urine Cult Not Indicated; RBC Urine 5-10/HPF (0-5/HPF); Squamous Epithelial Cell Urine 1-5 /HPF (0-5/HPF); WBC Urine 0-1/HPF (0-5/HPF)
--- NOTE | 2023-01-27 03:00 | P.HP_ITS ---
History of Present Illness History of Present Illness Chief complaint: constipation/kidney stone Narrative: 72 y/o with PMh of HTN, BPH, CKD, HLD, A-fib, DM and b/l kidney stones since 2019, presented with Lt flank pain Diagnosed with two-6 mm obstructing Lt proximal ureteral stones, Lt hydronephrosis and hydroureter, non-obstructing Lt kidney stones and MEHDI. Flank pain started a day earlier, intermittent. No fever, chills, hematuria. Constipated. [facility] Medical History (Updated 01/27/23 @ 03:34 by Edwin Eckert MD) BPH (benign prostatic hyperplasia) Diabetes A-fib CKD (chronic kidney disease) stage 3, GFR 30-59 ml/min Social History household members: spouse Smoking Status: Never smoker alcohol intake: current Meds Home Medications and Allergies Home Medications Medication Instructions Recorded Confirmed Type amlodipine 5 mg tablet 5 mg PO DAILY 01/27/23 01/27/23 History apixaban 5 mg tablet (Eliquis) 5 mg PO BID 01/27/23 01/27/23 History atorvastatin 10 mg tablet 10 mg PO DAILY 01/27/23 01/27/23 History chlorthalidone 25 mg tablet 12.5 mg PO QAM 01/27/23 01/27/23 History glipizide 10 mg tablet, extended 10 mg PO DAILY 01/27/23 01/27/23 History release 24 hr lisinopril 40 mg tablet 40 mg PO DAILY 01/27/23 01/27/23 History metformin 500 mg tablet,extended 500 mg PO BID 01/27/23 01/27/23 History release 24 hr semaglutide 7 mg tablet (Rybelsus) 7 mg PO DAILY 01/27/23 01/27/23 History tamsulosin 0.4 mg capsule 0.4 mg PO DAILY 01/27/23 01/27/23 History triamcinolone acetonide 0.1 % 1 applic topical 01/27/23 History topical cream Allergies Allergy/AdvReac Type Severity Reaction Status Date / Time Penicillins Allergy Verified 06/11/18 11:20 Review of Systems Constitutional Comments: w/o fever or chills Cardiovascular Comments: w/o chest pain or palpitations Respiratory Comments: w/o shortness of breath Gastrointestinal Comments: constipated in 3 days, had BM today Genitourinary Comments: left flank / groin pain had hematuria last Tuesday Exam Vital Signs (past 8 hours): - 01/26/23 22:33 01/26/23 22:34 01/26/23 22:44 Temperature 97.7 F Pulse Rate 59 L 56 L Respiratory Rate 18 21 Blood Pressure 112/65 Pulse Oximetry 94 93 91 Oxygen Delivery Method Room Air Room Air Oxygen Flow Rate 01/26/23 22:44 01/26/23 23:00 01/26/23 23:00 Temperature Pulse Rate 60 Respiratory Rate 21 Blood Pressure 99/54 L 92/55 L Pulse Oximetry 93 Oxygen Delivery Method Room Air Oxygen Flow Rate 01/26/23 23:15 01/26/23 23:20 01/26/23 23:30 Temperature Pulse Rate Respiratory Rate Blood Pressure 99/55 L Pulse Oximetry 92 92 Oxygen Delivery Method Nasal Cannula Nasal Cannula Oxygen Flow Rate 3 4 01/26/23 23:30 01/27/23 00:00 01/27/23 00:11 Temperature Pulse Rate 58 L 43 L Respiratory Rate 20 22 Blood Pressure 110/56 L Pulse Oximetry 95 93 Oxygen Delivery Method Nasal Cannula Room Air Oxygen Flow Rate 4 01/27/23 00:11 01/27/23 00:30 01/27/23 00:30 Temperature Pulse Rate 47 L 41 L Respiratory Rate 21 16 Blood Pressure 111/58 L Pulse Oximetry 93 97 Oxygen Delivery Method Room Air Room Air Oxygen Flow Rate 01/27/23 01:00 01/27/23 01:00 01/27/23 01:30 Temperature Pulse Rate 42 L Respiratory Rate 17 Blood Pressure 116/54 L 109/60 Pulse Oximetry 92 Oxygen Delivery Method Room Air Oxygen Flow Rate 01/27/23 01:30 01/27/23 02:00 01/27/23 02:00 Temperature Pulse Rate 45 L 43 L Respiratory Rate 19 17 Blood Pressure 125/63 Pulse Oximetry 96 95 Oxygen Delivery Method Room Air Room Air Oxygen Flow Rate Oxygen Delivery Method Room Air Oxygen Flow Rate 4 Const Other: laying in bed in no distress HENMT Other: normocephalic Eyes Other: eomi, reactive pupils Resp Other: CTA Cardio Other: Irregular GI Other: indwelling catheter Skin Other: no rashes Neuro Other: w/o deficits Psych Other: appropriate mod lucid Objective Labs 01/26/23 22:39 01/26/23 22:39 Labs: Laboratory Results - last 24 hr 01/26/23 01/26/23 01/27/23 22:39 23:06 00:15 WBC 17.3 H RBC 4.88 Hgb 14.3 Hct 41.7 MCV 85.6 MCH 29.4 MCHC 34.3 RDW 14.7 Plt Count 201 Neut % (Auto) 73.7 Lymph % (Auto) 13.2 L [place] % (Auto) 12.2 Eos % (Auto) 0.3 L Baso % (Auto) 0.6 Neut # (Auto) 78986 H Lymph # (Auto) 2300 [place] # (Auto) 2100 H Eos # (Auto) 100 Baso # (Auto) 100 Sodium 132 L Potassium 3.8 Chloride 99 Carbon Dioxide 17 L BUN 67 H Creatinine 3.12 H Estimated GFR 20 L BUN/Creatinine Ratio 21.5 Glucose 184 H Lactate 1.9 Calcium 9.4 Magnesium 2.1 Total Bilirubin 1.8 H AST 20 ALT 18 Alkaline Phosphatase 65 Total Creatine Kinase 62 Troponin I 0.031 NT-Pro-B Natriuret Pep 530 H Total Protein 7.3 Albumin 3.9 Globulin 3.4 Albumin/Globulin Ratio 1.1 Lipase 1045 H Procalcitonin 0.48 Urine Color Yellow Urine Appearance Clear Urine pH 5.0 Ur Specific [place] >=1.030 H Urine Protein Negative Urine Glucose (UA) Negative Urine Ketones Trace H Urine Occult Blood 3+ H Urine Nitrate Negative Urine Bilirubin Negative Urine Urobilinogen 1.0 Ur Leukocyte Esterase Negative Urine RBC 5-10/hpf H Urine WBC 0-1/hpf Ur Squamous Epith Cells 1-5 /hpf Urine Bacteria None seen Ur Culture Indicated? Cult not indicated Assessment & Plan Assessment and plan (1) Acute kidney injury: Status: Acute Plan: Had several liters in ED, continue with NS 100 cc / - monitored BMP, avoidance of nephrotoxins - metformin lisinopril, chlorthalidone - on hold) (2) Calculus of left ureter: Status: Acute Plan: Two 6mm obstructing stones Urology will see today NPO Flomax, pain management, antiemetic, IVFs Suspected UTI - given dose of Levaquin in ED, 750 mg, with current renal function he is covered next 48 hours (3) CKD (chronic kidney disease) stage 3, GFR 30-59 ml/min: Status: Acute Plan: Likely stage 3, based on renal function from 2019 Referral to nephrology (4) A-fib: Status: Acute Plan: Holding Eliquis - had hematuria, restart after urology procedure Likely SSS - chronically bradycardic quality assurance monitor (5) Diabetes: Status: Acute Plan: last A1C 7.7, as per the pt With current MEHDI - holding oral hypoglycemics - SS instead (6) BPH (benign prostatic hyperplasia): Status: Acute Plan: Flomax, Finasteride Follows with urology - Dr Douglas
[2023-01-27] MEDS: SODIUM CHLORIDE 0.9% 1,000 ML 100 ML IV ×3 (05:14→22:45)
[2023-01-27] MEDS: ONDANSETRON 4 MG/2 ML INJ IV (05:29)
[2023-01-27] MEDS: HYDROMORPHONE 0.5 MG INJ IV ×8 (05:29→22:45)
[2023-01-27 06:28] LABS: Add Manual Diff / Slide Review NO; Basophils Absolute Auto 100 /uL (0-100); Basophils Percent Auto 0.5 % (0-2); Eosinophils Absolute Auto 0 /uL (0-450); Eosinophils Percent Auto 0.3 % (2-4); Hematocrit 35.6 % (41-53); Hemoglobin 12.3 g/dL (13.5-17.5); Lymphocytes Absolute Auto 1400 /uL (1100-4500); Lymphocytes Percent Auto 11.2 % (25-40); Mean Corpuscular HGB Conc 34.4 % (30-36); Mean Corpuscular Hemoglobin 29.5 PG (26-34); Mean Corpuscular Volume 85.6 fL (80-100); Monocytes Absolute Auto 1300 /uL (0-900); Monocytes Percent Auto 10.8 % (3-14); Neutrophils Absolute Auto 9300 /uL (1500-7000); Neutrophils Percent Auto 77.2 % (50-75); Platelet Count 152 X10^3/uL (150-400); Red Blood Cell Count 4.16 X10^6/uL (4.5-5.9); Red Cell Distribution Width 14.8 % (11.6-14.8)
[2023-01-27 06:34] LABS: BUN Creatinine Ratio 23.5 (6-22); Blood Urea Nitrogen 65 mg/dL (9-20); Calcium 8.2 mg/dL (8.4-10.2); Carbon Dioxide 15 mmol/L (22-32); Chloride 106 mmol/L (98-107); Estimated Glomerular Filt Rate 23 mL/min (>60); Glucose 97 mg/dL (80-110); HEMOLYSIS 39 (0-50); Potassium 4.1 mmol/L (3.4-5.1); Sodium 131 mmol/L (137-145)
[2023-01-27 07:09] LABS: MRSA (Nasal) PCR Not Detected (Not Detect)
--- NOTE | 2023-01-27 13:23 | P.CONS_ITS ---
History of Present Illness Consult details Date Patient Seen: 01/27/23 Time Patient Seen: 13:23 Chief complaint: constipation/kidney stone/elevated creatinine Reason for consult: Left ureteral calculus obstructing, elevated creatinine and colic Requesting provider: Conner Rodríguez Narrative: This 72-year-old male presented to the emergency department last night with complaint of abdominal pain, nausea, vomiting, having been diagnosed with a kidney stone on the left side earlier in the week. The workup he was found to have by CT scan what appeared to be a 6 mm obstructing stone in the left proximal ureter as well as potentially a smaller stone. He also had nausea, vomiting, constipation and a markedly elevated creatinine. Patient also had bradycardia and atrial fibrillation and was admitted to the hospitalist service. Prior to going up stairs the patient had a significant bowel movement which relieved a lot of his pain. On admission he was hydrated and his creatinine has improved from the 3 to 2 range. The patient also had an elevated white blood count and was empirically given antibiotics. Today with hydration his white blood count is come from the 17 to 12 range. Patient reports a history of previous stones on least 2-3 separate occasions which he says he was able to pass on his own. Does not appear to have had a metabolic workup. He reports that he voids well though there was indication that they had some difficulty passing a catheter on further questioning patient has what sounded like balanitis xerotica obliterans which has been treated with clobetasol and catheterization. He reports this is helped tremendously and his doctors say that it is all but gone on exam he does have some residual and a Cho catheter in place. Patient is anticoagulated currently on Eliquis and I did discuss with Dr. Rodríguez his supervisor of way the need to stop his anticoagulation and for him to be NPO. Given his current situation and multiple medical difficulties plan is to have him undergo cystoscopy with left stent placement tomorrow and then to treat his stone at a later date. The rationale for this was discussed with the patient. Cystoscopy with left stent placement, procedure, risks, alternatives were discussed with the patient in his questions were answered. He wishes to proceed the risks to include but not limited to bleeding, infection, injury to surrounding structures, stent irritation, ureteral injury, anesthetic complications, unpredictable and unforeseen complications and sequelae. The patient voices understanding and acceptance of risks and wishes to proceed. He will be made NPO his anticoagulants will be stopped and if not covered by antibiotics he will be covered by appropriate antibiotics. Meds Home Medications and Allergies Home Medications Medication Instructions Recorded Confirmed Type amlodipine 5 mg tablet 5 mg PO DAILY 01/27/23 01/27/23 History apixaban 5 mg tablet (Eliquis) 5 mg PO BID 01/27/23 01/27/23 History atorvastatin 10 mg tablet 10 mg PO DAILY 01/27/23 01/27/23 History chlorthalidone 25 mg tablet 12.5 mg PO QAM 01/27/23 01/27/23 History glipizide 10 mg tablet, extended 10 mg PO DAILY 01/27/23 01/27/23 History release 24 hr lisinopril 40 mg tablet 40 mg PO DAILY 01/27/23 01/27/23 History metformin 500 mg tablet,extended 500 mg PO BID 01/27/23 01/27/23 History release 24 hr semaglutide 7 mg tablet (Rybelsus) 7 mg PO DAILY 01/27/23 01/27/23 History tamsulosin 0.4 mg capsule 0.4 mg PO DAILY 01/27/23 01/27/23 History triamcinolone acetonide 0.1 % 1 applic topical 01/27/23 History topical cream Allergies Allergy/AdvReac Type Severity Reaction Status Date / Time Penicillins Allergy Verified 06/11/18 11:20 Exam Vital Signs (past 8 hours): - 01/27/23 05:30 01/27/23 05:45 01/27/23 06:00 Temperature Pulse Rate 68 46 L 41 L Respiratory Rate 20 19 20 Blood Pressure Pulse Oximetry 97 92 92 Oxygen Delivery Method 01/27/23 06:15 01/27/23 06:30 01/27/23 07:00 Temperature Pulse Rate 41 L 40 L Respiratory Rate 20 18 Blood Pressure Pulse Oximetry 95 93 Oxygen Delivery Method Room Air 01/27/23 07:00 01/27/23 07:30 01/27/23 08:00 Temperature 98.3 F Pulse Rate 38 L 39 L 41 L Respiratory Rate 16 18 19 Blood Pressure Pulse Oximetry 93 95 96 Oxygen Delivery Method 01/27/23 08:06 01/27/23 08:06 01/27/23 08:30 Temperature Pulse Rate 43 L 40 L Respiratory Rate 22 18 Blood Pressure 114/56 L Pulse Oximetry 95 92 Oxygen Delivery Method 01/27/23 09:00 01/27/23 09:30 01/27/23 10:00 Temperature Pulse Rate 40 L 40 L 53 L Respiratory Rate 20 16 19 Blood Pressure Pulse Oximetry 94 95 95 Oxygen Delivery Method 01/27/23 10:30 01/27/23 11:00 01/27/23 11:30 Temperature Pulse Rate 43 L 41 L 39 L Respiratory Rate 19 18 17 Blood Pressure Pulse Oximetry 95 95 95 Oxygen Delivery Method 01/27/23 12:00 01/27/23 12:16 01/27/23 12:16 Temperature 98.5 F Pulse Rate 38 L 41 L Respiratory Rate 21 19 Blood Pressure 118/59 L Pulse Oximetry 97 97 Oxygen Delivery Method 01/27/23 12:30 Temperature Pulse Rate 40 L Respiratory Rate 18 Blood Pressure Pulse Oximetry 96 Oxygen Delivery Method Oxygen Delivery Method Room Air Oxygen Flow Rate 4 Narrative Exam Narrative: General: This is an awake, alert, comfortable appearing, oriented obese male lying in bed. Lungs: Clear full and equal Cardiovascular exam: Irregularly irregular rate and rhythm in the 40s to 50s. Abdominal exam: Soft, obese, nontender Genitourinary exam: Circumcised male with residual evidence of balanitis xerotica obliterans at the glands Cho catheter in place. Patient has a normal scrotum, normal testes, normal epididymis and cord structures Rectal exam: Not done today Neurologic exam: Grossly intact Objective Labs 01/27/23 06:12 01/27/23 06:12 Labs: Laboratory Results - last 24 hr 01/26/23 01/26/23 01/27/23 22:39 23:06 00:15 WBC 17.3 H RBC 4.88 Hgb 14.3 Hct 41.7 MCV 85.6 MCH 29.4 MCHC 34.3 RDW 14.7 Plt Count 201 Neut % (Auto) 73.7 Lymph % (Auto) 13.2 L [place] % (Auto) 12.2 Eos % (Auto) 0.3 L Baso % (Auto) 0.6 Neut # (Auto) 61185 H Lymph # (Auto) 2300 [place] # (Auto) 2100 H Eos # (Auto) 100 Baso # (Auto) 100 Sodium 132 L Potassium 3.8 Chloride 99 Carbon Dioxide 17 L BUN 67 H Creatinine 3.12 H Estimated GFR 20 L BUN/Creatinine Ratio 21.5 Glucose 184 H Lactate 1.9 Calcium 9.4 Magnesium 2.1 Total Bilirubin 1.8 H AST 20 ALT 18 Alkaline Phosphatase 65 Total Creatine Kinase 62 Troponin I 0.031 NT-Pro-B Natriuret Pep 530 H Total Protein 7.3 Albumin 3.9 Globulin 3.4 Albumin/Globulin Ratio 1.1 Lipase 1045 H Procalcitonin 0.48 Urine Color Yellow Urine Appearance Clear Urine pH 5.0 Ur Specific [place] >=1.030 H Urine Protein Negative Urine Glucose (UA) Negative Urine Ketones Trace H Urine Occult Blood 3+ H Urine Nitrate Negative Urine Bilirubin Negative Urine Urobilinogen 1.0 Ur Leukocyte Esterase Negative Urine RBC 5-10/hpf H Urine WBC 0-1/hpf Ur Squamous Epith Cells 1-5 /hpf Urine Bacteria None seen Ur Culture Indicated? Cult not indicated Nasal Screen MRSA (PCR) 01/27/23 01/27/23 05:00 06:12 WBC 12.0 H RBC 4.16 L Hgb 12.3 L Hct 35.6 L MCV 85.6 MCH 29.5 MCHC 34.4 RDW 14.8 Plt Count 152 Neut % (Auto) 77.2 H Lymph % (Auto) 11.2 L [place] % (Auto) 10.8 Eos % (Auto) 0.3 L Baso % (Auto) 0.5 Neut # (Auto) 9300 H Lymph # (Auto) 1400 [place] # (Auto) 1300 H Eos # (Auto) 0 Baso # (Auto) 100 Sodium 131 L Potassium 4.1 Chloride 106 Carbon Dioxide 15 L BUN 65 H Creatinine 2.77 H Estimated GFR 23 L BUN/Creatinine Ratio 23.5 H Glucose 97 Lactate Calcium 8.2 L Magnesium Total Bilirubin AST ALT Alkaline Phosphatase Total Creatine Kinase Troponin I NT-Pro-B Natriuret Pep Total Protein Albumin Globulin Albumin/Globulin Ratio Lipase Procalcitonin Urine Color Urine Appearance Urine pH Ur Specific [place] Urine Protein Urine Glucose (UA) Urine Ketones Urine Occult Blood Urine Nitrate Urine Bilirubin Urine Urobilinogen Ur Leukocyte Esterase Urine RBC Urine WBC Ur Squamous Epith Cells Urine Bacteria Ur Culture Indicated? Nasal Screen MRSA (PCR) Not detected [facility] Medical History (Updated 01/27/23 @ 13:43 by Scar Tanner MD) Lower urinary tract symptoms BXO (balanitis xerotica obliterans) History of kidney stones Chronic anticoagulation Constipation BPH (benign prostatic hyperplasia) Diabetes A-fib CKD (chronic kidney disease) stage 3, GFR 30-59 ml/min Social History household members: spouse Tobacco & Substance Use Smoking Status: Never smoker alcohol intake: current Assessment & Plan Assessment and plan (1) Calculus of left ureter: Status: Acute (2) Acute kidney injury: Status: Acute (3) Constipation: Qualifiers: Constipation type: unspecified constipation type Qualified Code(s): K 59.00 - Constipation, unspecified Status: Acute (4) A-fib: Qualifiers: Atrial fibrillation type: longstanding persistent Qualified Code(s): I 48.11 - Longstanding persistent atrial fibrillation Status: Acute (5) Chronic anticoagulation: Status: Acute (6) History of kidney stones: Status: Acute (7) BXO (balanitis xerotica obliterans): Status: Acute (8) Lower urinary tract symptoms: Status: Acute Plan Assessment and plan: 1. 6 mm obstructing left ureteral calculus plan would be for cystoscopy with left stent placement treatment of his stones at a later date once the dust of his medical conditions have been resolved in settled. Patient will be NPO and off of anticoagulation at the time of procedure. Time Spent With Patient Time with patient: 30 to 49 minutes with 50% spent counseling/coordinating care
--- NOTE | 2023-01-27 13:52 | PM.HP.1 ---
History of Present Illness History of Present Illness Date Patient Seen: 01/27/23 Time Patient Seen: 09:00 Chief complaint: constipation/kidney stone/elevated creatinine Narrative: 72 y/o with PMh of HTN, BPH, CKD, HLD, A-fib, DM and b/l kidney stones since 2019, presented with Lt flank pain. He had nausea and vomiting with his pain, has a history of nephrolithiasis. He denied fever or chills, or hematuria. He does report recent constipation. He was admitted by overnight provider after imaging showed two 6 mm obstructing stones on the L ureter with L hydronpehrosis. Labs showed a marked MEHDI with Cr 3.12 improved with initial fluids. Urology was consulted and planned to see patient today. Discussed with urology and patient will have stent placement tomorrow. He feels a bit better this morning, with improved abdominal pain. [facility] Medical History (Updated 01/27/23 @ 13:43 by Scar Tanner MD) Lower urinary tract symptoms BXO (balanitis xerotica obliterans) History of kidney stones Chronic anticoagulation Constipation BPH (benign prostatic hyperplasia) Diabetes A-fib CKD (chronic kidney disease) stage 3, GFR 30-59 ml/min Social History household members: spouse Smoking Status: Never smoker alcohol intake: current Meds Home Medications and Allergies Home Medications Medication Instructions Recorded Confirmed Type amlodipine 5 mg tablet 5 mg PO DAILY 01/27/23 01/27/23 History apixaban 5 mg tablet (Eliquis) 5 mg PO BID 01/27/23 01/27/23 History atorvastatin 10 mg tablet 10 mg PO DAILY 01/27/23 01/27/23 History chlorthalidone 25 mg tablet 12.5 mg PO QAM 01/27/23 01/27/23 History glipizide 10 mg tablet, extended 10 mg PO DAILY 01/27/23 01/27/23 History release 24 hr lisinopril 40 mg tablet 40 mg PO DAILY 01/27/23 01/27/23 History metformin 500 mg tablet,extended 500 mg PO BID 01/27/23 01/27/23 History release 24 hr semaglutide 7 mg tablet (Rybelsus) 7 mg PO DAILY 01/27/23 01/27/23 History tamsulosin 0.4 mg capsule 0.4 mg PO DAILY 01/27/23 01/27/23 History triamcinolone acetonide 0.1 % 1 applic topical 01/27/23 History topical cream Allergies Allergy/AdvReac Type Severity Reaction Status Date / Time Penicillins Allergy Verified 06/11/18 11:20 Review of Systems Review of Systems Narrative: All other systems reviewed with the patient and are negative unless otherwise stated. Exam Vital Signs (past 8 hours): - 01/27/23 06:00 01/27/23 06:15 01/27/23 06:30 Temperature Pulse Rate 41 L 41 L 40 L Respiratory Rate 20 20 18 Blood Pressure Pulse Oximetry 92 95 93 Oxygen Delivery Method 01/27/23 07:00 01/27/23 07:00 01/27/23 07:30 Temperature Pulse Rate 38 L 39 L Respiratory Rate 16 18 Blood Pressure Pulse Oximetry 93 95 Oxygen Delivery Method Room Air 01/27/23 08:00 01/27/23 08:06 01/27/23 08:06 Temperature 98.3 F Pulse Rate 41 L 43 L Respiratory Rate 19 22 Blood Pressure 114/56 L Pulse Oximetry 96 95 Oxygen Delivery Method 01/27/23 08:30 01/27/23 09:00 01/27/23 09:30 Temperature Pulse Rate 40 L 40 L 40 L Respiratory Rate 18 20 16 Blood Pressure Pulse Oximetry 92 94 95 Oxygen Delivery Method 01/27/23 10:00 01/27/23 10:30 01/27/23 11:00 Temperature Pulse Rate 53 L 43 L 41 L Respiratory Rate 19 19 18 Blood Pressure Pulse Oximetry 95 95 95 Oxygen Delivery Method 01/27/23 11:30 01/27/23 12:00 01/27/23 12:16 Temperature Pulse Rate 39 L 38 L Respiratory Rate 17 21 Blood Pressure 118/59 L Pulse Oximetry 95 97 Oxygen Delivery Method 01/27/23 12:16 01/27/23 12:30 Temperature 98.5 F Pulse Rate 41 L 40 L Respiratory Rate 19 18 Blood Pressure Pulse Oximetry 97 96 Oxygen Delivery Method Oxygen Delivery Method Room Air Oxygen Flow Rate 4 Narrative Exam Narrative: General:? Patient is well developed and well nourished, in no distress at this time. HEENT:? Normocephalic, atraumatic, extraocular muscles intact, oral pharynx is clear and mucous membranes are moist. Neck: supple and symmetric, trachea is midline, no cervical adenopathy. Negative for JVD Chest:? Normal AP diameter and contour without kyphoscoliosis, no tachypnea, equal chest rise bilaterally. Lungs:? CTA b/l no wheezing rhonchi or rales. Cardio:?bradycardic with irregularly irregular rhythm. Abdomen: soft. LLQ tenderness, no distension. Musculoskeletal:? Muscle strength and tone are equal within normal limits, no deformity. Extremities: No edema or joint effusions. No cyanosis or clubbing. Skin:? Pale,? Warm to touch,dry and intact without rashes, ulcerations or petechiae.? Neuro:? Alert and orientated x3,? sensation to touch intact in all extremities, no gross deficits noted of cranial nerves. Psych:? Patient has a well-kept appearance, appropriate affect, mental status attitude thought context and judgment are appropriate for age. Objective Labs 01/27/23 06:12 01/27/23 06:12 Labs: Laboratory Results - last 24 hr 01/26/23 01/26/23 01/27/23 22:39 23:06 00:15 WBC 17.3 H RBC 4.88 Hgb 14.3 Hct 41.7 MCV 85.6 MCH 29.4 MCHC 34.3 RDW 14.7 Plt Count 201 Neut % (Auto) 73.7 Lymph % (Auto) 13.2 L [place] % (Auto) 12.2 Eos % (Auto) 0.3 L Baso % (Auto) 0.6 Neut # (Auto) 75614 H Lymph # (Auto) 2300 [place] # (Auto) 2100 H Eos # (Auto) 100 Baso # (Auto) 100 Sodium 132 L Potassium 3.8 Chloride 99 Carbon Dioxide 17 L BUN 67 H Creatinine 3.12 H Estimated GFR 20 L BUN/Creatinine Ratio 21.5 Glucose 184 H Lactate 1.9 Calcium 9.4 Magnesium 2.1 Total Bilirubin 1.8 H AST 20 ALT 18 Alkaline Phosphatase 65 Total Creatine Kinase 62 Troponin I 0.031 NT-Pro-B Natriuret Pep 530 H Total Protein 7.3 Albumin 3.9 Globulin 3.4 Albumin/Globulin Ratio 1.1 Lipase 1045 H Procalcitonin 0.48 Urine Color Yellow Urine Appearance Clear Urine pH 5.0 Ur Specific [place] >=1.030 H Urine Protein Negative Urine Glucose (UA) Negative Urine Ketones Trace H Urine Occult Blood 3+ H Urine Nitrate Negative Urine Bilirubin Negative Urine Urobilinogen 1.0 Ur Leukocyte Esterase Negative Urine RBC 5-10/hpf H Urine WBC 0-1/hpf Ur Squamous Epith Cells 1-5 /hpf Urine Bacteria None seen Ur Culture Indicated? Cult not indicated Nasal Screen MRSA (PCR) 01/27/23 01/27/23 05:00 06:12 WBC 12.0 H RBC 4.16 L Hgb 12.3 L Hct 35.6 L MCV 85.6 MCH 29.5 MCHC 34.4 RDW 14.8 Plt Count 152 Neut % (Auto) 77.2 H Lymph % (Auto) 11.2 L [place] % (Auto) 10.8 Eos % (Auto) 0.3 L Baso % (Auto) 0.5 Neut # (Auto) 9300 H Lymph # (Auto) 1400 [place] # (Auto) 1300 H Eos # (Auto) 0 Baso # (Auto) 100 Sodium 131 L Potassium 4.1 Chloride 106 Carbon Dioxide 15 L BUN 65 H Creatinine 2.77 H Estimated GFR 23 L BUN/Creatinine Ratio 23.5 H Glucose 97 Lactate Calcium 8.2 L Magnesium Total Bilirubin AST ALT Alkaline Phosphatase Total Creatine Kinase Troponin I NT-Pro-B Natriuret Pep Total Protein Albumin Globulin Albumin/Globulin Ratio Lipase Procalcitonin Urine Color Urine Appearance Urine pH Ur Specific [place] Urine Protein Urine Glucose (UA) Urine Ketones Urine Occult Blood Urine Nitrate Urine Bilirubin Urine Urobilinogen Ur Leukocyte Esterase Urine RBC Urine WBC Ur Squamous Epith Cells Urine Bacteria Ur Culture Indicated? Nasal Screen MRSA (PCR) Not detected Assessment & Plan Assessment & Plan narrative: (1) Sepsis secondary acute cystitis with MEHDI, possible acute respiratory failure with hypoxia, hyperbilirubinemia - presume urinary source, UA with hematura and some WBC, but also contaminant. However, given presentation did get Levaquin in the ER. This will last likely 48 hours with his renal function. Resume ceftriaxone on 01/29 if still in the hospital. Urine culture ordered as was not reflexed but he is pending urological procedure. - he is documented as having been on 4L O2 in the ER, now hypoxia apparently resolved no longer requiring supplemental O2. No signs or symptoms of pneumonia. - Continue IV fluids - appreciate urology consultation. - hold home glipizide, chlorthalidone, lisinopril, and metformin in setting of sepsis. (2) Calculus of left ureter with L ureteral obstruction - urology plans to place stent tomorrow after discussion today. (3) MEHDI on CKD (chronic kidney disease) stage 3, GFR 30-59 ml/min: creatinine apparently around 1.5 as an outpatient. will continue IV fluids, place stent which should help renal function improve. - continue to follow with daily BMP - as above (4) Chronic A-fib: Status: Acute Plan: holding eliquis pending urology procedure Possible SSS - chronically bradycardic Continue operator specialist communications He has a number of longstanding heart issues, follows with cardiology. He has had no recent chest pain, or dyspnea to warrant further evaluation prior to urological procedure. (5) Diabetes: holding home oral antihyperglycemic meds. - continue sliding scale for now. (6) BPH (benign prostatic hyperplasia): Continue home medications Code: Full, surrogate is patient's spouse DVT: resume apixaban after urology interventions. I have utilized all available immediate resources to obtain, update, or review the patient's current medications. Additional history was obtained and discussion occurred with urologist and overnight provider to formulate above assessment and plan. I have reviewed patient's imaging, documentation, and lab results personally. Quality VTE Deep Vein Thrombosis/Pulmonary Embolism Present on Admission: No MIPS - Admit I confirm the patient?s Advance Care Plan is present, Code status is documented, Surrogate decision maker is in patient?s record [If Yes, STOP here]: Yes
--- NOTE | 2023-01-27 15:48 | CM.DANOTE ---
Initial DCP Assessment Note Pt is a 72 yo male, resident of [place], presents with constipation, Lt flank pain, admitted for management of Sepsis secondary acute cystitis with MEHDI. In addition, found to have a Calculus of left ureter with L ureteral obstruction, urology has consulted and will perform cystoscopy with left stent placement, patient made NPO PCP: Naty Kinney Payer: [facility]/Commercial Reviewed chart, pt discussed in multidisciplinary rounds this morning. Patient indp. in all aspects and expected to return home w/spouse to assist as needed after Urology procedure. No barriers identified at this time to patient's safe discharge home w/family to assist; close outpatient f/u recommended. CM team will plan to follow closely in case any DC needs or concerns arise. ESTEFANY Patel Discharge Planning/Care Management Discharge Assessment Start: 01/27/23 15:45 Freq: Status: Active Protocol: Document 01/27/23 15:45 ANETA (Rec: 01/27/23 15:48 ANETA [id number]) Discharge Planning Assessment Assigned Lunch Truck Driver ESTEFANY Dunaway DPOA/Assigned Designee Name Myesha Martel, spouse Contact Information [phone] Advance Directives? Yes Advance Directives on File No History Provided By Patient,Medical Record Prior Living Arrangements House Household Members spouse Type of transporation used prior to Drives own vehicle admit Independent with ADL's Yes Is patient alert and oriented? Yes Barriers to Discharge No Comment Home w/spouse is expected Discharge Plan Home Transportation Arrangement family Referrals Initiated None needed
[2023-01-27] MEDS: INSULIN LISPRO 100 UNIT/ML 3ML VIAL SUBCUT (17:15)
[2023-01-27] MEDS: TAMSULOSIN 0.4 MG CAPSULE PO (20:08)
[2023-01-28] VITALS (55 sets, daily range): BP systolic 91–162; BP diastolic 45–72; PULSE 33–94; RESP 12–31; TEMP 36.1–37.1; O2SAT 91–98; BMI 31.9
--- NOTE | 2023-01-28 | DI.RAD.S_ITS ---
PROCEDURE: XR ABDOMEN 1V INDICATIONS: L STENT PLACEMENT COMPARISON: None. Technique: 2 intraoperative fluoroscopic views of the abdomen and pelvis. FINDINGS: Intraoperative fluoroscopic views of the pelvis during ureteral stent placement. The proximal of the stent projects over the expected location of the kidney and the distal end projects over the expected location of the bladder. . IMPRESSION: Intraoperative fluoroscopic views during ureteral stent placement. Dictated by: Philip Miramontes M.D. on 01/28/2023 at 12:16 Approved by: Philip Miramontes M.D. on 01/28/2023 at 12:16
[2023-01-28] MEDS: OXYCODONE IR 10 MG TABLET PO ×2 (00:09→20:23)
[2023-01-28] MEDS: ACETAMINOPHEN 325 MG TABLET 650 MG PO ×2 (00:10→20:23)
[2023-01-28] MEDS: HYDROMORPHONE 0.5 MG INJ IV ×3 (02:20→08:07)
[2023-01-28 05:15] LABS: Add Manual Diff / Slide Review NO; Basophils Absolute Auto 0 /uL (0-100); Basophils Percent Auto 0.5 % (0-2); Eosinophils Absolute Auto 100 /uL (0-450); Eosinophils Percent Auto 0.9 % (2-4); Hematocrit 34.4 % (41-53); Hemoglobin 11.9 g/dL (13.5-17.5); Lymphocytes Absolute Auto 1300 /uL (1100-4500); Lymphocytes Percent Auto 13.2 % (25-40); Mean Corpuscular HGB Conc 34.5 % (30-36); Mean Corpuscular Hemoglobin 29.7 PG (26-34); Monocytes Absolute Auto 1200 /uL (0-900); Monocytes Percent Auto 11.9 % (3-14); Neutrophils Absolute Auto 7200 /uL (1500-7000); Neutrophils Percent Auto 73.5 % (50-75); Platelet Count 146 X10^3/uL (150-400); Red Cell Distribution Width 14.4 % (11.6-14.8); White Blood Cell Count 9.8 X10^3/uL (4.5-11.0)
[2023-01-28 05:17] LABS: BUN Creatinine Ratio 21.8 (6-22); Blood Urea Nitrogen 61 mg/dL (9-20); Calcium 7.8 mg/dL (8.4-10.2); Carbon Dioxide 17 mmol/L (22-32); Chloride 107 mmol/L (98-107); Estimated Glomerular Filt Rate 23 mL/min (>60); Glucose 139 mg/dL (80-110); HEMOLYSIS < 15 (0-50); Potassium 4.2 mmol/L (3.4-5.1); Sodium 131 mmol/L (137-145)
[2023-01-28] MEDS: SODIUM CHLORIDE 0.9% 1,000 ML 100 ML IV (08:01)
[2023-01-28] MEDS: ATORVASTATIN 20 MG TABLET 10 MG PO (08:06)
--- NOTE | 2023-01-28 10:47 | SUR.OPER ---
Lithotomy on padded OR bed, head on pillow, arms secured on padded arm boards at <90 degrees abduction. Legs secured in padded yellow fins stirrups.
--- NOTE | 2023-01-28 10:59 | PM.PREOP ---
Pre-operative Note COVID-19 COVID-19 status: Not tested Interval Note History & Physical reviewed/Exam performed by Physician: Yes Changes to H&P: No
[2023-01-28] MEDS: CEFAZOLIN 2 GM/100 ML PREMIX 100 ML IV (11:10)
[2023-01-28] MEDS: iopamidoL 30 ML VIAL 10 ML INTRAURETH (11:30)
--- NOTE | 2023-01-28 11:38 | P.OP_ITS ---
Procedure & Clinicians Procedure: Cystoscopy with left ureteral stent placement Same procedure as scheduled: Yes Indications: This 72-year-old gentleman who presented to the emergency department with abdominal pain was found to be constipated and to have an obstructing proximal left ureteral calculus and markedly elevated creatinine. He would multiple other medical problems was admitted to the hospital and presents this time for cystoscopy with left ureteral stent placement to relieve the obstruction on the left collecting system. Surgeon: Scar Tanner Click Yes if Unassisted: Yes Anesthesia Type: General Operative Notes Findings: Findings: Urethra distally shows changes of balanitis xerotica obliterans prox imal urethra is with normal mucosa sphincter as well coapted the prostate shows at the most moderate obstructive character. Ureteral orifices in normal position with clear efflux. Within the bladder the mucosa was normal there are no tumors. At fluoroscopy the stones were noted in the proximal ureter. The 7 Ukrainian by multi length stent was left in good position in the left collecting system with no string attached. After placement of the stent there was vigorous efflux of urine through the stent. No other abnormality was noted. At the end of the procedure the 16 Ukrainian Cho the patient had arrived with was replaced without difficulty. Closure Type: not applicable Specimen(s): none sent Prosthetic devices, grafts, tissues, transplants, or devices: Seven Ukrainian by multi length left ureteral stent with no string. Estimated Blood Loss (mL): 0 Procedure in detail: Procedure in detail: After informed consent was obtained and the left side marked the patient was identified and brought to the operating room where he was placed in a supine position on the table. Once in the supine position anesthesia was induced to maintain. Ensuring an adequate level of anesthesia the patient was transitioned lithotomy position where he was prepped, draped, prepared for Transurethral procedure. Ensuring an adequate level of anesthesia after prepping and draping and time-out a 22 Ukrainian cystoscope was passed through the urethra prostate and in the bladder were cystoscopy was performed. The left ureteral orifice identified and a hybrid guidewire was passed up into the collecting system under fluoroscopic visualization. The stent was then passed in a coaxial fashion over the wire positioned in the renal pelvis under fluoroscopic visualization in the bladder under direct vision. With the stent in good position the wire was removed. Grasping forceps was inserted and the nylon harness removed leaving the stent without string in good position. The scope was then removed and the 16 Ukrainian 5 cc Cho catheter was passed through the urethral prostate and into the bladder where the balloon was filled with 10 cc sterile water and placed to gravity drainage. At this point the patient was awakened having tolerated the procedure well there were no complications. The patient will be returned to the [facility] under the care of the hospitalist to be discharged to follow from my office at a later date once the dust from his medical problems have been settled. Complications: none Post-operative Condition: stable Disposition: other (Patient is to be returned to his bed on the floor under the care of the hospitalist.) Plan for aftercare: Patient will be cared for by the hospitalist discharged when appropriate. The Cho catheter can be removed at the leisure of the hospitalist. The patient will follow up my office at a later date to have his stone definitively treated.
[2023-01-28] MEDS: hydrOXYzine pamoate 25 MG CAPSULE PO (11:57)
[2023-01-28] MEDS: INSULIN LISPRO 100 UNIT/ML 3ML VIAL SUBCUT ×3 (12:46→20:26)
--- NOTE | 2023-01-28 12:59 | PC.NURSE ---
1230 pt returned to room from the OR, IV infusing LR @ 125/hr, manuel cath draining dark rishi urine with sediment. Pt denies pain or discomfort, hungry. VSS.
--- NOTE | 2023-01-28 13:25 | PM.PN.1 ---
Subjective Subjective Interval history: 72 M admitted with sepsis due to acute cystitis in the setting of obstructive uropathy. He underwent L sided ureteral stent placement today. He denies abdominal pain, nausea, shortness of breath this afternoon. Cr up slightly this morning. Anticipate this will improve after stent placement. Exam Vital Signs (past 8 hours): - 01/28/23 05:30 01/28/23 06:00 01/28/23 06:21 Temperature Pulse Rate 55 L 50 L 40 L Respiratory Rate 19 18 20 Blood Pressure Pulse Oximetry 94 Oxygen Delivery Method 01/28/23 06:21 01/28/23 06:30 01/28/23 07:00 Temperature Pulse Rate 40 L Respiratory Rate 17 Blood Pressure 106/51 L Pulse Oximetry 92 Oxygen Delivery Method Room Air 01/28/23 07:00 01/28/23 07:20 01/28/23 07:20 Temperature Pulse Rate 50 L 40 L Respiratory Rate 21 21 Blood Pressure 115/59 L Pulse Oximetry 95 Oxygen Delivery Method 01/28/23 07:30 01/28/23 08:00 01/28/23 08:30 Temperature 98.7 F Pulse Rate 41 L 48 L 37 L Respiratory Rate 18 20 14 Blood Pressure Pulse Oximetry 93 Oxygen Delivery Method 01/28/23 09:00 01/28/23 09:30 01/28/23 10:00 Temperature 98.7 F Pulse Rate 37 L 36 L 49 L Respiratory Rate 12 19 31 H Blood Pressure 115/59 L Pulse Oximetry Oxygen Delivery Method 01/28/23 10:30 01/28/23 11:04 01/28/23 11:45 Temperature 97.6 F 98.0 F Pulse Rate 46 L 43 L 70 Respiratory Rate 15 16 18 Blood Pressure 128/56 L 91/51 L Pulse Oximetry 98 93 Oxygen Delivery Method Room Air Room Air 01/28/23 11:52 01/28/23 11:56 01/28/23 12:00 Temperature Pulse Rate 68 63 67 Respiratory Rate 14 14 14 Blood Pressure 108/45 L 121/69 135/62 Pulse Oximetry 92 95 96 Oxygen Delivery Method Room Air Room Air Room Air 01/28/23 12:05 01/28/23 12:22 01/28/23 12:24 Temperature 97.0 F L Pulse Rate 58 L 42 L 38 L Respiratory Rate 16 Blood Pressure 132/59 L Pulse Oximetry 95 93 93 Oxygen Delivery Method Room Air 01/28/23 12:24 01/28/23 12:30 01/28/23 12:30 Temperature Pulse Rate 40 L Respiratory Rate Blood Pressure 144/65 H 148/68 H Pulse Oximetry 92 Oxygen Delivery Method Oxygen Delivery Method Room Air Oxygen Flow Rate 0 Narrative Exam Narrative: General:? Patient is well developed and well nourished, in no distress at this time. HEENT:? Normocephalic, atraumatic, extraocular muscles intact, oral pharynx is clear and mucous membranes are moist. Neck: supple and symmetric, trachea is midline, no cervical adenopathy. Negative for JVD Chest:? Normal AP diameter and contour without kyphoscoliosis, no tachypnea, equal chest rise bilaterally. Lungs:? CTA b/l no wheezing rhonchi or rales. Cardio:?bradycardic with irregularly irregular rhythm. Abdomen:S NT ND Musculoskeletal:? Muscle strength and tone are equal within normal limits, no deformity. Extremities: No edema or joint effusions. No cyanosis or clubbing. Skin:? Pale,? Warm to touch,dry and intact without rashes, ulcerations or petechiae.? Neuro:? Alert and orientated x3,? sensation to touch intact in all extremities, no gross deficits noted of cranial nerves. Psych:? Patient has a well-kept appearance, appropriate affect, mental status attitude thought context and judgment are appropriate for age. Objective Labs 01/28/23 04:05 01/28/23 04:05 Labs: Laboratory Results - last 24 hr 01/28/23 04:05 WBC 9.8 RBC 4.00 L Hgb 11.9 L Hct 34.4 L MCV 86.0 MCH 29.7 MCHC 34.5 RDW 14.4 Plt Count 146 L Neut % (Auto) 73.5 Lymph % (Auto) 13.2 L [place] % (Auto) 11.9 Eos % (Auto) 0.9 L Baso % (Auto) 0.5 Neut # (Auto) 7200 H Lymph # (Auto) 1300 [place] # (Auto) 1200 H Eos # (Auto) 100 Baso # (Auto) 0 Sodium 131 L Potassium 4.2 Chloride 107 Carbon Dioxide 17 L BUN 61 H Creatinine 2.80 H Estimated GFR 23 L BUN/Creatinine Ratio 21.8 Glucose 139 H Calcium 7.8 L Magnesium 2.0 PFSH Medical History (Updated 01/27/23 @ 13:43 by Scar Tanner MD) Lower urinary tract symptoms BXO (balanitis xerotica obliterans) History of kidney stones Chronic anticoagulation Constipation BPH (benign prostatic hyperplasia) Diabetes A-fib CKD (chronic kidney disease) stage 3, GFR 30-59 ml/min Social History household members: spouse Smoking Status: Never smoker alcohol intake: current Assessment & Plan Assessment & Plan narrative: (1) Sepsis secondary acute cystitis with MEHDI, possible acute respiratory failure with hypoxia, hyperbilirubinemia - presume urinary source, UA with hematura and some WBC, but also contaminant. However, given presentation did get Levaquin in the ER. This will last likely 48 hours with his renal function. Resume ceftriaxone starting tomorrow at 0100. Urine culture ordered as was not reflexed but he is pending urological procedure so one was sent but after antibiotics. It is without growth. - he is documented as having been on 4L O2 in the ER, now hypoxia apparently resolved no longer requiring supplemental O2. No signs or symptoms of pneumonia. - Continue IV fluids - appreciate urology consultation. - hold home glipizide, chlorthalidone, lisinopril, and metformin in setting of sepsis with MEHDI. (2) Calculus of left ureter with L ureteral obstruction - s/p L ureteral stent placement today, 01/28 with urology. - outpatient urology follow up for stone management - okay per urologist to discontinue manuel, will discontinue if renal function improves. (3) MEHDI on CKD (chronic kidney disease) stage 3, GFR 30-59 ml/min: creatinine apparently around 1.5 as an outpatient. will continue IV fluids, place stent which should help renal function improve. - continue to follow with daily BMP - as above (4) Chronic A-fib: Status: Acute Plan: held eliquis pending urology procedure, ordered to resume this evening. Possible SSS - chronically bradycardic Continue Telemetry monitore. (5) Diabetes: continue to hold home oral antihyperglycemic meds. - continue sliding scale for now. (6) BPH (benign prostatic hyperplasia): Continue home medications Code: Full, surrogate is patient's spouse DVT: resume apixaban after urology interventions. Dispo: anticipate discharge home. timing in 1-2 days depending on renal function. Quality VTE Deep Vein Thrombosis/Pulmonary Embolism Present on Admission: No
[2023-01-28] MEDS: BENZOCAINE/MENTHOL 1 LOZ PKT 1 EACH PO (20:23)
[2023-01-28] MEDS: MELATONIN 3 MG TABLET 9 MG PO (20:24)
[2023-01-28] MEDS: APIXABAN 5 MG TABLET PO (20:24)
[2023-01-28] MEDS: SENNOSIDES 8.6 MG TABLET PO (20:24)
[2023-01-28] MEDS: TAMSULOSIN 0.4 MG CAPSULE PO (20:25)
[2023-01-29] VITALS (9 sets, daily range): BP systolic 130–151; BP diastolic 61–70; PULSE 36–42; RESP 15–18; TEMP 36.5–36.9; O2SAT 93–97
[2023-01-29] MEDS: cefTRIAXone 1,000 MG in SODIUM CHLORIDE 0.9% 100 ML 100 MG IV (00:07)
[2023-01-29 05:24] LABS: Add Manual Diff / Slide Review NO; Basophils Absolute Auto 0 /uL (0-100); Basophils Percent Auto 0.1 % (0-2); Eosinophils Absolute Auto 0 /uL (0-450); Hematocrit 34.4 % (41-53); Lymphocytes Absolute Auto 900 /uL (1100-4500); Lymphocytes Percent Auto 12.3 % (25-40); Mean Corpuscular HGB Conc 34.9 % (30-36); Mean Corpuscular Hemoglobin 29.6 PG (26-34); Mean Corpuscular Volume 84.6 fL (80-100); Monocytes Absolute Auto 400 /uL (0-900); Monocytes Percent Auto 6.2 % (3-14); Neutrophils Absolute Auto 5900 /uL (1500-7000); Neutrophils Percent Auto 81.4 % (50-75); Platelet Count 159 X10^3/uL (150-400); Red Blood Cell Count 4.06 X10^6/uL (4.5-5.9); Red Cell Distribution Width 14.5 % (11.6-14.8); White Blood Cell Count 7.2 X10^3/uL (4.5-11.0)
[2023-01-29 06:14] LABS: BUN Creatinine Ratio 25.9 (6-22); Blood Urea Nitrogen 52 mg/dL (9-20); Calcium 8.4 mg/dL (8.4-10.2); Carbon Dioxide 16 mmol/L (22-32); Chloride 106 mmol/L (98-107); Estimated Glomerular Filt Rate 34 mL/min (>60); Glucose 185 mg/dL (80-110); HEMOLYSIS < 15 (0-50); Magnesium 2.2 mg/dL (1.6-2.3); Potassium 4.7 mmol/L (3.4-5.1); Sodium 133 mmol/L (137-145)
[2023-01-29] MEDS: ATORVASTATIN 20 MG TABLET 10 MG PO (08:26)
[2023-01-29] MEDS: APIXABAN 5 MG TABLET PO (08:28)
[2023-01-29] MEDS: INSULIN LISPRO 100 UNIT/ML 3ML VIAL SUBCUT ×2 (08:30→12:16)
[2023-01-29] MEDS: INSULIN GLARGINE 100 UNIT/ML 3ML PEN 8 UNIT SUBCUT (09:20)
[2023-01-29 14:35] LABS: BUN Creatinine Ratio 29.7 (6-22); Blood Urea Nitrogen 54 mg/dL (9-20); Calcium 8.7 mg/dL (8.4-10.2); Carbon Dioxide 18 mmol/L (22-32); Chloride 106 mmol/L (98-107); Estimated Glomerular Filt Rate 38 mL/min (>60); Glucose 166 mg/dL (80-110); HEMOLYSIS < 15 (0-50); Potassium 4.3 mmol/L (3.4-5.1); Sodium 132 mmol/L (137-145)
--- NOTE | 2023-01-29 14:45 | CM.DPC ---
DCP Continued: Per RN, waiting on patient labs now. ORE DRYER entered room and introduced self and role. Patient accompanied by Dtr/VINCENZO/ at bedside. Patient reports hopeful to d/c home today. Reports no needs from CM team at this time. Plan: patient to d/c home with family when medically stable, to transport. no needs identified at this time. CM team will continue to follow as needed. ESTEFANY Webb
--- NOTE | 2023-01-29 18:47 | PM.DS.1 ---
History of Present Illness History of Present Illness Date Patient Seen: 01/29/23 Chief complaint: constipation/kidney stone/elevated creatinine Narrative: 72 y/o with PMh of HTN, BPH, CKD, HLD, A-fib, DM and b/l kidney stones since 2019, presented with Lt flank pain. He had nausea and vomiting with his pain, has a history of nephrolithiasis. He denied fever or chills, or hematuria. He does report recent constipation. He was admitted by overnight provider after imaging showed two 6 mm obstructing stones on the L ureter with L hydronpehrosis. Labs showed a marked MEHDI with Cr 3.12 improved with initial fluids. Urology was consulted and planned to see patient today. Discussed with urology and patient will have stent placement tomorrow. He feels a bit better this morning, with improved abdominal pain. Discharge Providers Provider Date of admission: 01/27/23 02:30 Discharge Date: 01/29/23 Primary care physician: Naty Kinney MD Consults: 01/27/23 08:47 Consult to Urology Routine Comment: Consulting Provider: Scar Tanner Reason for consultation: obstructive uropathy Has provider been notified: Yes Discharge provider: Conner Rodríguez DO Summary Hospital Course Discharge Diagnosis: (1) Sepsis secondary acute cystitis with MEHDI, possible acute respiratory failure with hypoxia, hyperbilirubinemia (2) Calculus of left ureter with L ureteral obstruction (3) MEHDI on CKD (chronic kidney disease) stage 3, GFR 30-59 ml/min: (4) Chronic A-fib: (5) Diabetes: (6) BPH (benign prostatic hyperplasia): 7. Hyponatremia, mild, asymptomatic Hospital Course: This is a 72 year old male with PMH of CKD, DM, chronic afib, BPH, nephrolithiasis who was admitted with presumed sepsis secondary to MEHDI with MEHDI, mild respiratory failure with hypoxia and hyperbilirubinemia. He was found to have an obstructing L ureteral stone on imaging. urology was consulted and placed L ureteral stent on 01/28. After stent placement his renal function began to improve. He had improvement in his symptoms overall and when creatinine improved to 1.82 (presumed outpatient creatinine reported to be 1.5) he was discharged home. He was voiding without difficulty after manuel removal s/p stent placement. He will follow up with urology as an outpatient for stone removal and stent retrieval. He was discharged with another 5 days of oral cefdinir for presumed complicated cystitis, though cultures were unremarkable. Time Spent with Patient Time spent: Greater than 30 minutes Exam Vital Signs (past 8 hours): - 01/29/23 11:00 01/29/23 11:38 01/29/23 13:43 Temperature 97.9 F Blood Pressure 151/67 H Oxygen Delivery Method Room Air Oxygen Delivery Method Room Air Oxygen Flow Rate 0 Narrative Exam Narrative: General:? Patient is well developed and well nourished, in no distress at this time. HEENT:? Normocephalic, atraumatic, extraocular muscles intact, oral pharynx is clear and mucous membranes are moist. Neck: supple and symmetric, trachea is midline, no cervical adenopathy. Negative for JVD Chest:? Normal AP diameter and contour without kyphoscoliosis, no tachypnea, equal chest rise bilaterally. Lungs:? CTA b/l no wheezing rhonchi or rales. Cardio:?bradycardic with irregularly irregular rhythm. Abdomen:S NT ND Musculoskeletal:? Muscle strength and tone are equal within normal limits, no deformity. Extremities: No edema or joint effusions. No cyanosis or clubbing. Skin:? Pale,? Warm to touch,dry and intact without rashes, ulcerations or petechiae.? Neuro:? Alert and orientated x3,? sensation to touch intact in all extremities, no gross deficits noted of cranial nerves. Psych:? Patient has a well-kept appearance, appropriate affect, mental status attitude thought context and judgment are appropriate for age. Objective Labs 01/29/23 04:15 01/29/23 14:20 Labs: Laboratory Results - last 24 hr 01/29/23 01/29/23 04:15 14:20 WBC 7.2 RBC 4.06 L Hgb 12.0 L Hct 34.4 L MCV 84.6 MCH 29.6 MCHC 34.9 RDW 14.5 Plt Count 159 Neut % (Auto) 81.4 H Lymph % (Auto) 12.3 L [place] % (Auto) 6.2 Eos % (Auto) 0.0 L Baso % (Auto) 0.1 Neut # (Auto) 5900 Lymph # (Auto) 900 L [place] # (Auto) 400 Eos # (Auto) 0 Baso # (Auto) 0 Sodium 133 L 132 L Potassium 4.7 4.3 Chloride 106 106 Carbon Dioxide 16 L 18 L BUN 52 H 54 H Creatinine 2.01 H 1.82 H Estimated GFR 34 L 38 L BUN/Creatinine Ratio 25.9 H 29.7 H Glucose 185 H 166 H Calcium 8.4 8.7 Magnesium 2.2 PFSH Medical History (Updated 01/27/23 @ 13:43 by Scar Tanner MD) Lower urinary tract symptoms BXO (balanitis xerotica obliterans) History of kidney stones Chronic anticoagulation Constipation BPH (benign prostatic hyperplasia) Diabetes A-fib CKD (chronic kidney disease) stage 3, GFR 30-59 ml/min Social History household members: spouse Smoking Status: Never smoker alcohol intake: current Discharge Plan Discharge Plan Patient Disposition: Home Provider Discharge Comment: You were admitted to the hospital with an obstructing L kidney stone and had a stent placed. Given your presentation, it is assumed you also had a urinary infection. Complete antibiotics at home. Please resume the following medications on Tuesday: chlorthalidone, glipizide, metformin. Otherwise continue the rest of your home medications as previously scheduled. Discharge orders & Medications Prescriptions: New cefdinir 300 mg capsule 300 mg PO BID 5 Days Qty: 10 0RF Continued amlodipine 5 mg tablet 5 mg PO DAILY atorvastatin 10 mg tablet 10 mg PO DAILY chlorthalidone 25 mg tablet 12.5 mg PO QAM Eliquis 5 mg tablet 5 mg PO BID glipizide 10 mg tablet extended release 24hr 10 mg PO DAILY lisinopril 40 mg tablet 40 mg PO DAILY metformin 500 mg tablet extended release 24 hr 500 mg PO BID tamsulosin 0.4 mg capsule 0.4 mg PO DAILY triamcinolone acetonide 0.1 % cream 1 applic topical DAILY Rybelsus 7 mg tablet 7 mg PO DAILY Follow up/Referrals: Naty Kinney MD [Primary Care Provider] - Scar Tanner MD [Physician] - 1 Week Diet/Activity/Treatments Diet: Diet as Tolerated, Regular and Carb-consistent/Diabetic Activity: As tolerated, no restrictions. Visit Report/Discharge Packet Stand Alone Forms: Patient Portal/API, Stroke Signs & Symptoms Discharge Data Primary Care Provider: Naty Kinney Discharges patient from system. Discharge Date/Time: 01/29/23 16:03 Quality VTE Deep Vein Thrombosis/Pulmonary Embolism Present on Admission: No
== END 2023-01-29 16:03 | disposition home or self-care (01) | DRG 854 ==
LOC: ED 01-27 02:30 → AC 01-27 02:32 → ICU 01-27 03:32
PROVIDERS: Internal Medicine; Urology; Admitting Provider Internal Medicine; Emergency Provider Emergency Medicine; PCP Family Medicine; Referring Provider Emergency Medicine; Visit Provider Internal Medicine
PROC: 0T778DZ Dilation of Left Ureter with Intraluminal Device, Via Natural or Artificial Opening Endoscopic (ICD-10-PCS; principal; 2023-01-28 10:15)
DX: A41.9 Sepsis, unspecified organism (principal); N17.9 Acute kidney failure, unspecified; N20.1 Calculus of ureter; N30.00 Acute cystitis without hematuria; R65.20 Severe sepsis without septic shock; I48.91 Unspecified atrial fibrillation; E11.22 Type 2 diabetes mellitus with diabetic chronic kidney disease; I12.9 Hypertensive chronic kidney disease with stage 1 through stage 4 chronic kidney disease, or unspecified chronic kidney disease; N18.30 Chronic kidney disease, stage 3 unspecified; N40.0 Benign prostatic hyperplasia without lower urinary tract symptoms; K59.00 Constipation, unspecified; N48.0 Leukoplakia of penis; E80.6 Other disorders of bilirubin metabolism; Z79.01 Long term (current) use of anticoagulants; Z79.84 Long term (current) use of oral hypoglycemic drugs
CPT/HCPCS: 36415; 52332; 71045; 74018; 74176; 76000; 80048; 80053; 81001; 82550; 82962; 83605; 83690; 83735; 83880; 84145; 84484; 85025; 87040; 87086; 87797; 93005; 96365; 96366; 99222; 99285; 99291; J0690; J0696; J1100; J1170; J1815; J1956; J2405; J2704; J3010; Q9967

== ENCOUNTER → 2023-02-11 09:07 | Outpatient (CLI) | payer MEDICARE, OTHER, SELFPAY ==
[2023-01-27 04:49] VITALS: BMI 31.9
--- NOTE | 2023-02-11 09:09 | DI.RAD.S_ITS ---
PROCEDURE: XR KUB INDICATIONS: Follow-up kidney stone TECHNIQUE: One view of the abdomen acquired. COMPARISON: [facility], CR, XR ABDOMEN 1V, 01/28/2023, 11:36. [facility], CT, CT KIDNEY URETER BLADDER (KUB), 01/26/2023, 23:31. FINDINGS: Surgical changes and devices: Left double-J ureteral stent projects in the expected locations. Bowel: No kidney stone identified. Scattered small bowel and colonic gas. No dilated loops of bowel seen. Soft tissues: No suspicious abdominal calcifications. Visualized solid organ contours appear normal in size. Bones: No suspicious bony lesions. IMPRESSION: Left ureteral stent projects in the expected location. Dictated by: Regulo Bee M.D. on 02/11/2023 at 9:33 Approved by: Regulo Bee M.D. on 02/11/2023 at 9:34
== END ==
PROVIDERS: PCP Family Medicine; Referring Provider Urology; Visit Provider Urology
DX: Z87.442 Personal history of urinary calculi (principal); Z09 Encounter for follow-up examination after completed treatment for conditions other than malignant neoplasm; Z96.0 Presence of urogenital implants
CPT/HCPCS: 74018

== ENCOUNTER → 2023-02-16 15:14 | Outpatient (CLI) | payer MEDICARE, OTHER, SELFPAY ==
[2023-01-27 04:49] VITALS: BMI 31.9
== END ==
PROVIDERS: PCP Family Medicine; Visit Provider Urology
DX: N20.1 Calculus of ureter (principal); N17.9 Acute kidney failure, unspecified; R39.9 Unspecified symptoms and signs involving the genitourinary system; N40.1 Benign prostatic hyperplasia with lower urinary tract symptoms; N48.0 Leukoplakia of penis; R35.0 Frequency of micturition; Z87.442 Personal history of urinary calculi
CPT/HCPCS: 87086; 99214

== ENCOUNTER 2023-02-21 09:07 | Day surgery (SDC) | payer MEDICARE, OTHER, SELFPAY ==
[2023-01-27 04:49] VITALS: BMI 31.9
[2023-02-21] MEDS: LACTATED RINGERS 1,000 ML 21 ML IV (09:25)
--- NOTE | 2023-02-21 09:35 | PM.PREOP ---
Pre-operative Note COVID-19 COVID-19 status: Not tested Interval Note History & Physical reviewed/Exam performed by Physician: Yes Changes to H&P: No
[2023-02-21 09:45] VITALS: BP 135/64; PULSE 60; RESP 16; TEMP 36.4; O2SAT 94; BMI 29.8
[2023-02-21] MEDS: ACETAMINOPHEN 325 MG TABLET 975 MG PO (09:54)
[2023-02-21] MEDS: CIPROFLOXACIN 400 MG/200 ML PIGGYBACK 200 MG IV (10:05)
--- NOTE | 2023-02-21 10:20 | SUR.OPER ---
Lithotomy on padded OR bed, head on pillow, arms secured on padded arm boards at <90 degrees abduction. Legs secured in padded yellow fins stirrups.
[2023-02-21] MEDS: iopamidoL 30 ML VIAL INTRAURETH (10:31)
--- NOTE | 2023-02-21 11:25 | PM.OP.1 ---
Procedure & Clinicians Procedure: Left ureteroscopy with laser lithotripsy, basket extraction of stone, removal of left ureteral stent, placement of left ureteral stent Same procedure as scheduled: Yes Indications: This 72-year-old gentleman presented with complaints that revealed left ureteral calculus. He had a stent placed at that time because of other medical conditions. He presents at this time for treatment of his stones. He has stopped his Eliquis. Surgeon: Scar Tanner Click Yes if Unassisted: Yes Operative Notes Findings: Findings: Urethral meatus is normal. Urethra is normal along its length with normal mucosa. Sphincter as well coapted prostate shows moderate obstructive character with no bulging into the bladder. The right ureteral orifices in normal position with clear efflux. There was minimal bullous edema around the left ureteral orifice which had a minimally encrusted stent in place. There are no mucosal lesions or other abnormalities within the bladder. The stones which had been in the ureter were found to have been pushed up into the kidney where they were treated. There were 2 stones 1 was larger which fits with what was seen on the CT scan. There were some other smaller fragments that may have been encrustation on the upper part of the stent. At the end of the procedure all large fragments appeared to have been removed. There were no other mucosal lesions or abnormalities along the ureter no tumors were noted throughout the collecting system. Again at the end of the procedure all large fragments appeared to have been removed at sequential nephroscopy and ureteroscopy. A 7 [place] by multilink stent was left in good position in the left collecting system without a string. Closure Type: not applicable Specimen(s): other (Left renal calculi fragments) Prosthetic devices, grafts, tissues, transplants, or devices: 7 [place] by multilink stent no string Estimated Blood Loss (mL): 5 Blood products transfused: none Procedure in detail: Procedure in detail: After informed consent was obtained, the patient was identified and brought to the operating room where he was placed in a supine position on the operative table. He then had anesthesia induced and maintained. Ensuring an adequate level of anesthesia the patient was transitioned to the lithotomy position where he was prepped, draped, prepared for Transurethral procedure. After prepping, draping, time-out and ensuring an adequate level of anesthesia 22 [place] cystoscope was passed through the urethra prostate and bladder were cystoscopy was performed. The stent was then grasped with a grasping forceps and brought out to the meatus. A hybrid guidewire was then passed through the stent into the collecting system and the stent was backed out. This was left in place as a safety wire. The cystoscope was once again reinserted and a 2nd wire passed up and into the collecting system to be used as a working wire. The cystoscope was backed out. A ureteral access sheath was then passed over the wire and in easily up the ureter. The wire and inner portion of the sheath was removed the ureteral scope was passed up and into the collecting system where sequential nephroscopy was performed but the aid of contrast. With the stones identified in it being apparent that the larger would not be removable without laser lithotripsy laser fiber was inserted in the stone fragmented. Basket was then inserted and the fragments were sequentially collected via the basket brought out and collected to be sent for compositional analysis. The collecting system was once again filled with contrast and going from sit. Inferior sequential nephroscopy was once again performed. A the smaller stone was then identified in the lower pole grasped and removed. Again 1 more sequential nephroscopy revealed only small fragments and dust. The ureter was then visualized along its entire length as the scope and ureteral access sheath were removed. The ureter again was visualized along its entire length. With the ureteral scope removed the wire was then backloaded through the cystoscope and the cystoscope inserted. The stent was then passed over the wire and into the collecting system position in the renal pelvis via fluoroscopic visualization and in the bladder under direct vision. The nylon harness was removed and the stent was left in good position. The bladder was drained the cystoscope removed and the patient was awakened having tolerated the procedure well. He will return to my office in approximately 7-10 days with a KUB for likely stent removal. There were no complications Complications: none Post-operative Condition: stable Disposition: PACU Plan for aftercare: Patient to strain his urine and save any fragments that he might catch patient follow up my office in approximately 10 days with a KUB at which time we will plan for stent removal if all fragments are passed.
[2023-02-21 11:31] VITALS: BP 107/57; PULSE 42; RESP 15; TEMP 37; O2SAT 89
[2023-02-21 11:35] VITALS: BP 106/53; PULSE 40; RESP 9; O2SAT 95
[2023-02-21 11:40] VITALS: BP 106/52; PULSE 60; RESP 12; O2SAT 95
[2023-02-21 11:45] VITALS: BP 98/56; PULSE 43; RESP 15; O2SAT 93
[2023-02-21 11:54] VITALS: BP 102/52; PULSE 54; RESP 14; TEMP 36.3; O2SAT 93
[2023-02-28 07:08] LABS: Ca oxalate monohydr 20 % (.); Size 4x4 mm (.); Uric Acid 80 % (.)
== END 2023-02-21 12:07 | disposition home or self-care (01) ==
PROVIDERS: PCP Family Medicine; Referring Provider Urology; Visit Provider Urology
PROC: 0TF78ZZ Fragmentation in Left Ureter, Via Natural or Artificial Opening Endoscopic (ICD-10-PCS; CPT 52353; principal; 2023-02-21 13:30)
DX: N20.1 Calculus of ureter (principal); I48.91 Unspecified atrial fibrillation; E11.22 Type 2 diabetes mellitus with diabetic chronic kidney disease; N18.9 Chronic kidney disease, unspecified; Z79.84 Long term (current) use of oral hypoglycemic drugs
CPT/HCPCS: 52356; 76000; 82365; 82962; C1771; J0744; J2250; J3010; J3490; Q9967

== ENCOUNTER 2023-03-01 14:29 | Emergency (ER) | payer MEDICARE, OTHER, SELFPAY ==
[2023-01-27 04:49] VITALS: BMI 31.9
[2023-03-01 14:33] VITALS: BP 154/80; PULSE 74; RESP 18; TEMP 37.6; O2SAT 97; BMI 29.8
[2023-03-01 15:07] VITALS: TEMP 37.6
[2023-03-01] MEDS: ACETAMINOPHEN 325 MG TABLET 975 MG PO (15:07)
[2023-03-01 15:12] LABS: Add Manual Diff / Slide Review NO; Basophils Absolute Auto 100 /uL (0-100); Basophils Percent Auto 0.6 % (0-2); Eosinophils Absolute Auto 0 /uL (0-450); Eosinophils Percent Auto 0.1 % (2-4); Hematocrit 40.9 % (41-53); Hemoglobin 14.1 g/dL (13.5-17.5); Lymphocytes Absolute Auto 1000 /uL (1100-4500); Lymphocytes Percent Auto 7.6 % (25-40); Mean Corpuscular HGB Conc 34.4 % (30-36); Mean Corpuscular Hemoglobin 29.8 PG (26-34); Mean Corpuscular Volume 86.6 fL (80-100); Monocytes Absolute Auto 1600 /uL (0-900); Monocytes Percent Auto 11.7 % (3-14); Neutrophils Absolute Auto 10700 /uL (1500-7000); Platelet Count 151 X10^3/uL (150-400); Red Blood Cell Count 4.72 X10^6/uL (4.5-5.9); Red Cell Distribution Width 14.5 % (11.6-14.8); White Blood Cell Count 13.4 X10^3/uL (4.5-11.0)
[2023-03-01 15:16] LABS: INR 1.7 (0.9-1.3); Prothrombin Time 19.8 SECONDS (10.1-12.7)
[2023-03-01 15:19] LABS: Bilirubin Urine UA NEGATIVE (NEGATIVE); Color Urine UA YELLOW; Glucose Urine UA NEGATIVE (Negative); Ketones Urine UA NEGATIVE (NEGATIVE); Leukocyte Esterase Urine UA TRACE (NEGATIVE); Nitrite Urine UA NEGATIVE (Negative); Occult Blood Urine UA 3+ (Negative); Protein Urine UA 1+ (Negative); Urobilinogen Urine UA 0.2 E.U./dL (0.2)
[2023-03-01 15:19] LABS: PTT Partial Thromboplastin Tim 36 SECONDS (26-36)
[2023-03-01 15:25] LABS: Appearance Urine UA Slightly Cloudy
[2023-03-01 15:28] LABS: Lactate (Lactic Acid) 1.8 mmol/L (0.7-2.1)
[2023-03-01 15:29] LABS: Alanine Aminotransferase 17 IU/L (<50); Albumin 4.3 g/dL (3.5-5.0); Albumin Globulin Ratio 1.3 (1.0-2.8); Alkaline Phosphatase 79 U/L (38-126); Aspartate Aminotransferase 23 IU/L (17-59); BUN Creatinine Ratio 25.2 (6-22); Bilirubin Total 1.6 mg/dL (0.2-1.3); Blood Urea Nitrogen 34 mg/dL (9-20); Calcium 9.7 mg/dL (8.4-10.2); Carbon Dioxide 22 mmol/L (22-32); Chloride 103 mmol/L (98-107); Estimated Glomerular Filt Rate 55 mL/min (>60); Globulin 3.3 g/dL (1.7-4.1); Glucose 143 mg/dL (80-110); HEMOLYSIS 23 (0-50); Lipase 165 U/L (23-300); Potassium 4.3 mmol/L (3.4-5.1); Sodium 135 mmol/L (137-145); Total Protein 7.6 g/dL (6.3-8.2)
[2023-03-01 15:45] LABS: Amorphous Sediment Urine 1+; Bacteria Urine Moderate (10-30); Culture Indicated Urine Specimen Cultured; RBC Urine 30-100/HPF (0-5/HPF); Squamous Epithelial Cell Urine 0-1 /HPF (0-5/HPF); WBC Urine 5-10/HPF (0-5/HPF)
[2023-03-01 15:46] LABS: Procalcitonin 0.13 ng/mL (<0.5)
--- NOTE | 2023-03-01 16:10 | ED_ITS ---
HPI - General Adult General Chief complaint: Urogenital-Male Stated complaint: high temp frequent urination Time Seen by Provider: 03/01/23 14:55 Source: patient Mode of arrival: Ambulatory History of Present Illness HPI narrative: Patient is a 72-year-old male. Within the past month has had lithotripsy had ureter stent placed on the left. He states he has been straining his urine at home and has not noticed any passage of stones. This morning and as the day progressed he stated that he started to feel worse. He has been having chills. Frequent urination. He does feel like he is emptying his bladder. No abdominal pain. No sore throat. No chest pain or shortness of breath. No headache. He contacted his urologist office prior to coming to the emergency department. Related Data Home Medications Medication Instructions Recorded Confirmed amlodipine 5 mg tablet 5 mg PO DAILY 01/27/23 02/21/23 apixaban 5 mg tablet (Eliquis) 5 mg PO BID 01/27/23 02/21/23 atorvastatin 10 mg tablet 10 mg PO DAILY 01/27/23 02/21/23 chlorthalidone 25 mg tablet 12.5 mg PO QAM 01/27/23 02/21/23 glipizide 10 mg tablet, extended 10 mg PO DAILY 01/27/23 02/21/23 release 24 hr lisinopril 40 mg tablet 40 mg PO DAILY 01/27/23 02/21/23 metformin 500 mg tablet,extended 500 mg PO BID 01/27/23 02/21/23 release 24 hr semaglutide 7 mg tablet (Rybelsus) 7 mg PO DAILY 01/27/23 02/21/23 tamsulosin 0.4 mg capsule 0.4 mg PO DAILY 01/27/23 02/21/23 triamcinolone acetonide 0.1 % 1 applic topical DAILY 01/27/23 02/21/23 topical cream Previous Rx's Medication Instructions Recorded phenazopyridine 200 mg tablet 200 mg PO TID PRN Bladder 02/21/23 (Pyridium) irritation #30 tabs ciprofloxacin HCl 500 mg tablet 500 mg PO BID #10 tabs 03/01/23 Allergies Allergy/AdvReac Type Severity Reaction Status Date / Time Penicillins Allergy Verified 02/21/23 09:28 Review of Systems Constitutional Constitutional: Reports system reviewed and no additional complaints, except as documented Cardiovascular Cardiovascular: Reports system reviewed and no additional complaints, except as documented Respiratory Respiratory: Reports system reviewed and no additional complaints, except as documented Gastrointestinal Gastrointestinal: Reports system reviewed and no additional complaints, except as documented Integumentary/Breasts Skin/Breast: Reports system reviewed and no additional complaints, except as documented Neurologic Neurologic: Reports system reviewed and no additional complaints, except as documented Patient History Medical History Retained ureteral stent Lower urinary tract symptoms BXO (balanitis xerotica obliterans) History of kidney stones Chronic anticoagulation Constipation BPH (benign prostatic hyperplasia) Diabetes A-fib CKD (chronic kidney disease) stage 3, GFR 30-59 ml/min Social History household members: spouse Smoking Status: Never smoker alcohol intake: current Smoking Status: Never smoker alcohol intake frequency: a few times a month Substance Use Type: does not use Exam Initial Vital Signs Initial Vital Signs: Vital Signs Temperature 99.7 F H 03/01/23 14:33 Pulse Rate 74 03/01/23 14:33 Respiratory Rate 18 03/01/23 14:33 Blood Pressure 154/80 H 03/01/23 14:33 Pulse Oximetry 97 03/01/23 14:33 Oxygen Delivery Method Room Air 03/01/23 14:33 [facility] Head: normal to inspection and normocephalic Resp Auscultation: clear to auscultation bilaterally Cardio Rate: regular rate Rhythm: regular rhythm GI Inspection: normal to inspection Palpation: No firm and No tender Skin General: no rashes or lesions noted Neuro General: patient alert, patient awake and patient oriented x3 Course Orders Ordered: ED Orders 03/01/23 14:41 RT Consult Eval and Treat NOW 03/01/23 14:50 Complete Blood Count AUTO DIFF Stat Comprehensive Metabolic Panel Stat Lactate (Lactic Acid) Stat Lipase Stat PTT Partial Thromboplastin Victorino Stat Procalcitonin Stat Prothrombin Time INR Stat 03/01/23 15:10 Urinalysis and Microscopic Stat Urine Culture Stat 03/01/23 16:12 Blood Culture Stat Ondansetron HCl (Ondansetron 4 Mg/2 Ml Inj) 4 mg IV NOW PRN PRN Reason: Nausea And Vomiting Ondansetron HCl (Ondansetron 4 Mg Odt) 4 mg SL NOW PRN PRN Reason: Nausea And Vomiting Discontinued Medications Acetaminophen (Acetaminophen 325 Mg Tablet) 975 mg PO NOW ONE Stop: 03/01/23 14:56 Last Admin: 03/01/23 15:07 Dose: 975 mg Documented By: JEAN Sodium Chloride (Normal Saline 0.9%) 1,000 mls @ 1,000 mls/hr IV BOLUS ONE Stop: 03/01/23 15:40 Last Admin: 03/01/23 16:12 Dose: 1,000 mls/hr Documented By: JIM Ceftriaxone Sodium 1,000 mg/ (Sodium Chloride) 100 mls @ 200 mls/hr IV NOW ONE Stop: 03/01/23 15:25 Last Admin: 03/01/23 16:11 Dose: 200 mls/hr Documented By: JIM Vital Signs Vital signs: Vital Signs - 8 hr 03/01/23 14:33 03/01/23 15:07 03/01/23 16:16 Temperature 99.7 F H 99.7 F H 102.2 F H Pulse Rate 74 Respiratory Rate 18 Blood Pressure 154/80 H Pulse Oximetry 97 Oxygen Delivery Method Room Air 03/01/23 16:16 03/01/23 16:19 03/01/23 16:49 Temperature 102.2 F H Pulse Rate 63 57 L Respiratory Rate 22 Blood Pressure 126/68 Pulse Oximetry 99 93 Oxygen Delivery Method Room Air 03/01/23 17:00 Temperature Pulse Rate 58 L Respiratory Rate 25 H Blood Pressure Pulse Oximetry 92 Oxygen Delivery Method Medical Decision Making Medical Records Medical records reviewed: Yes I reviewed the patient's medical records. Lab Data Lab results reviewed: Yes I reviewed the patient's lab results. 03/01/23 14:50 03/01/23 14:50 Labs: Lab Results 03/01/23 03/01/23 Range/Units 14:50 15:10 WBC 13.4 H (4.5-11.0) X10^3/uL RBC 4.72 (4.5-5.9) X10^6/uL Hgb 14.1 (13.5-17.5) g/dL Hct 40.9 L (41-53) % MCV 86.6 (80-100) fL MCH 29.8 (26-34) PG MCHC 34.4 (30-36) % RDW 14.5 (11.6-14.8) % Plt Count 151 (150-400) X10^3/uL Neut % (Auto) 80.0 H (50-75) % Lymph % (Auto) 7.6 L (25-40) % [place] % (Auto) 11.7 (3-14) % Eos % (Auto) 0.1 L (2-4) % Baso % (Auto) 0.6 (0-2) % Neut # (Auto) 53355 H (6640-1105) /uL Lymph # (Auto) 1000 L (0196-6775) /uL [place] # (Auto) 1600 H (0-900) /uL Eos # (Auto) 0 (0-450) /uL Baso # (Auto) 100 (0-100) /uL PT 19.8 H (10.1-12.7) SECONDS INR 1.7 H (0.9-1.3) APTT 36 (26-36) SECONDS Sodium 135 L (137-145) mmol/L Potassium 4.3 (3.4-5.1) mmol/L Chloride 103 (98-107) mmol/L Carbon Dioxide 22 (22-32) mmol/L BUN 34 H (9-20) mg/dL Creatinine 1.35 H (0.66-1.25) mg/dL Estimated GFR 55 L (>60) mL/min BUN/Creatinine Ratio 25.2 H (6-22) Glucose 143 H (80-110) mg/dL Lactate 1.8 (0.7-2.1) mmol/L Calcium 9.7 (8.4-10.2) mg/dL Total Bilirubin 1.6 H (0.2-1.3) mg/dL AST 23 (17-59) IU/L ALT 17 (<50) IU/L Alkaline Phosphatase 79 (38-126) U/L Total Protein 7.6 (6.3-8.2) g/dL Albumin 4.3 (3.5-5.0) g/dL Globulin 3.3 (1.7-4.1) g/dL Albumin/Globulin Ratio 1.3 (1.0-2.8) Lipase 165 (23-300) U/L Procalcitonin 0.13 (<0.5) ng/mL Urine Color Yellow Urine Appearance Slightly cloudy Urine pH 5.0 (4.5-8.0) Ur Specific [place] 1.020 (1.000-1.035) Urine Protein 1+ H (Negative) Urine Glucose (UA) Negative (Negative) g/dL Urine Ketones Negative (NEGATIVE) Urine Occult Blood 3+ H (Negative) Urine Nitrate Negative (Negative) Urine Bilirubin Negative (NEGATIVE) Urine Urobilinogen 0.2 (0.2) E.U./dL Ur Leukocyte Esterase Trace H (NEGATIVE) Urine RBC 30-100/hpf H (0-5/HPF) Urine WBC 5-10/hpf H (0-5/HPF) Ur Squamous Epith Cells 0-1 /hpf (0-5/HPF) Amorphous Sediment 1+ Urine Bacteria Moderate (10-30) H (None) Ur Culture Indicated? Specimen cultured MDM Narrative Medical decision making narrative: Patient was nontoxic appearing. He did have a fever here in the emergency department has a leukocytosis. Has a urinalysis that is consistent with a urinary tract infection. He does have a left-sided ureteral stent in place. I did discuss the case with Dr. Tanner on-call for Urology who recommended no imaging studies. He recommended the patient be placed on Cipro. Dr. Tanner has actually already sent a prescription for this medication to [facility] after he received a call from the patient earlier today. He stated that he only gave enough medication until the culture results and depending on the culture result this medication may need to be prolonged or potentially changed. The patient is tolerating oral intake. He did receive a dose of Rocephin here in the emergency department. No indication for admission to the hospital. Will discharge patient home with return precautions. Patient and expressed understanding and agreement with plan. Discharge Plan Departure Patient Disposition: Home Clinical Impression: Urinary tract infection Instructions: DI for Urinary Tract Infection (UTI) Activity Restrictions/Additional Instructions: Dr. Tanner has already sent a prescription for Cipro to [facility] pharmacy. I recommend that you pick this medication up and start taking it as directed. A urine culture was pending at the time of your discharge and you will be contacted if we need to switch any medications based on this. Keep all of your scheduled medical appointments. You can take Tylenol for any fevers. Return to the emergency department for new or worsening symptoms. Prescriptions: No Action ciprofloxacin HCl 500 mg tablet 500 mg PO BID Qty: 10 0RF amlodipine 5 mg tablet 5 mg PO DAILY atorvastatin 10 mg tablet 10 mg PO DAILY chlorthalidone 25 mg tablet 12.5 mg PO QAM Eliquis 5 mg tablet 5 mg PO BID glipizide 10 mg tablet extended release 24hr 10 mg PO DAILY lisinopril 40 mg tablet 40 mg PO DAILY metformin 500 mg tablet extended release 24 hr 500 mg PO BID tamsulosin 0.4 mg capsule 0.4 mg PO DAILY triamcinolone acetonide 0.1 % cream 1 applic topical DAILY Rybelsus 7 mg tablet 7 mg PO DAILY phenazopyridine [Pyridium] 200 mg tablet 200 mg PO TID PRN (Reason: Bladder irritation) Qty: 30 0RF Referrals: Naty Kinney MD [Primary Care Provider] - Stand Alone Forms: Patient Portal/API
[2023-03-01] MEDS: cefTRIAXone 1,000 MG in SODIUM CHLORIDE 0.9% 100 ML 200 MG IV (16:11)
[2023-03-01] MEDS: SODIUM CHLORIDE 0.9% 1,000 ML 1000 ML IV (16:12)
[2023-03-01 16:16] VITALS: TEMP 39
[2023-03-01 16:19] VITALS: BP 126/68; PULSE 63; RESP 22; O2SAT 99
[2023-03-01 16:49] VITALS: PULSE 57; O2SAT 93
[2023-03-01 17:00] VITALS: PULSE 58; RESP 25; O2SAT 92
== END 2023-03-01 17:00 | disposition home or self-care (01) ==
PROVIDERS: Emergency Provider Emergency Medicine; PCP Family Medicine
DX: N39.0 Urinary tract infection, site not specified (principal); Z79.01 Long term (current) use of anticoagulants; Z79.899 Other long term (current) drug therapy
CPT/HCPCS: 36415; 80053; 81001; 83605; 83690; 84145; 85025; 85610; 85730; 87040; 87077; 87086; 87186; 96365; 99284; J0696

== ENCOUNTER → 2023-03-03 09:39 | Outpatient (CLI) | payer MEDICARE, OTHER, SELFPAY ==
[2023-01-27 04:49] VITALS: BMI 31.9
--- NOTE | 2023-03-03 09:41 | DI.RAD.S_ITS ---
PROCEDURE: XR KUB INDICATIONS: Follow-up kidney stone TECHNIQUE: One view of the abdomen acquired. COMPARISON: [facility], , XR KUB, 02/11/2023, 9:10. FINDINGS: Surgical changes and devices: Left ureteral stent in place. Bowel: Bowel gas pattern is normal. Soft tissues: No suspicious abdominal calcifications. Visualized solid organ contours appear normal in size. Bones: No suspicious bony lesions. IMPRESSION: Stable position of left ureteral stent. No evidence of renal stones. Dictated by: Philip Miramontes M.D. on 03/03/2023 at 12:21 Approved by: Philip Miramontes M.D. on 03/03/2023 at 12:22
== END ==
PROVIDERS: PCP Family Medicine; Referring Provider Urology; Visit Provider Urology
DX: Z09 Encounter for follow-up examination after completed treatment for conditions other than malignant neoplasm (principal); Z87.442 Personal history of urinary calculi; Z96.0 Presence of urogenital implants
CPT/HCPCS: 74018

== ENCOUNTER → 2023-03-04 09:27 | Outpatient (CLI) | payer MEDICARE, OTHER, SELFPAY ==
[2023-01-27 04:49] VITALS: BMI 31.9
--- NOTE | 2023-03-04 09:28 | DI.CT.S_ITS ---
PROCEDURE: CT ABDOMEN WO CON INDICATIONS: Question retained kidney stone TECHNIQUE: After the administration of oral contrast, 5 mm thick sections acquired from the diaphragms to the iliac crests. 5 mm coronal and sagittal reformats were then performed. For radiation dose reduction, the following was used: automated exposure control, adjustment of mA and/or kV according to patient size. COMPARISON: None. FINDINGS: Image quality: Excellent. Lung bases: Lung bases are clear. Heart size is normal. Solid organs: Liver is normal in size. Gallbladder is unremarkable . Pancreas is normal in contours. Spleen is normal in size. No adrenal nodules. The kidneys are normal in size with mild bilateral perinephric fat stranding. No right nephrolithiasis or hydronephrosis. Punctate 1 mm calculi are present within the left renal collecting system. The superior aspect of the double-J ureteral stent is visualized within the left pelvis. There is a low-density left renal cyst noted. Peritoneum and bowel: Bowel loops demonstrate normal wall thickness and caliber. No free fluid or air. Nodes and vessels: No retroperitoneal or mesenteric adenopathy by size criteria. Aorta and inferior vena cava are normal in size. Bones: No suspicious bony lesions. No vertebral body compression fractures. Miscellaneous: No ventral hernias. IMPRESSION: 1. Punctate 1 mm calculi within the left renal pelvis. No obstructing stones visualized within the upper ureters. Of note, the pelvis was not imaged on this study. Distal ureteral calculi cannot be excluded. Dictated by: Sade Young M.D. on 03/04/2023 at 10:13 Approved by: Sade Young M.D. on 03/04/2023 at 10:20
== END ==
PROVIDERS: PCP Family Medicine; Referring Provider Urology; Visit Provider Urology
DX: N20.0 Calculus of kidney (principal); Z96.0 Presence of urogenital implants; N30.01 Acute cystitis with hematuria; R39.9 Unspecified symptoms and signs involving the genitourinary system; N48.0 Leukoplakia of penis; N40.1 Benign prostatic hyperplasia with lower urinary tract symptoms; R35.0 Frequency of micturition; Z87.442 Personal history of urinary calculi
CPT/HCPCS: 74150; 81002; 99214

== ENCOUNTER → 2023-03-16 14:17 | Outpatient (CLI) | payer MEDICARE, OTHER, SELFPAY ==
[2023-01-27 04:49] VITALS: BMI 31.9
== END ==
PROVIDERS: PCP Family Medicine; Visit Provider Urology
DX: R39.9 Unspecified symptoms and signs involving the genitourinary system (principal); Z96.0 Presence of urogenital implants
CPT/HCPCS: 52310; 81002; 87086

== ENCOUNTER → 2023-03-31 08:58 | Outpatient (CLI) | payer MEDICARE, OTHER, SELFPAY ==
[2023-01-27 04:49] VITALS: BMI 31.9
[2023-03-31 10:11] LABS: Calcium 9.6 mg/dL (8.4-10.2); Phosphorous 3.4 mg/dL (2.3-3.7)
[2023-04-02 11:37] LABS: Calcium 8.9 mg/dL (8.6-10.2); Parathyroid Hormone, Intact 20 pg/mL (15-65)
== END ==
PROVIDERS: PCP Family Medicine; Referring Provider Urology; Visit Provider Urology
DX: N20.1 Calculus of ureter (principal); R39.9 Unspecified symptoms and signs involving the genitourinary system; N48.0 Leukoplakia of penis; Z96.0 Presence of urogenital implants; Z87.442 Personal history of urinary calculi
CPT/HCPCS: 36415; 81002; 82310; 83970; 84100; 84550

== ENCOUNTER → 2023-04-08 06:54 | Outpatient (CLI) | payer MEDICARE, OTHER, SELFPAY ==
[2023-01-27 04:49] VITALS: BMI 31.9
== END ==
PROVIDERS: PCP Family Medicine; Referring Provider Urology; Visit Provider Urology
DX: E79.0 Hyperuricemia without signs of inflammatory arthritis and tophaceous disease (principal)
CPT/HCPCS: 36415; 84550